=== PATIENT | male | born 1960 | race Caucasian/White ===

== ENCOUNTER 2019-06-05 11:14 | Inpatient (IN) | payer OTHER ==
[2019-06-05 11:43] LABS: Basophils % 0.6 % (0-1.3); Hematocrit 38.9 % (39.6-49.0); Lymphocytes % 5.7 % (15.3-44.8); MPV 9.2 fL (7.6-11.3); RBC Red Blood Cell Count 4.68 M/uL (4.33-5.43)
[2019-06-05] MEDS ORDERED: NA CHLORIDE 0.9% 3,000 ML ONE (11:44)
[2019-06-05] MEDS ORDERED: PIPER/TAZO/NS 3.375gm 3.375 GM/100 ML BAG ONE (11:44)
[2019-06-05 11:49] LABS: Protime INR 3.23
--- NOTE | 2019-06-05 12:08 | EDPHYS ---
Physician Documentation [facility] Name: Reji Kelly Age: 59 yrs Sex: Male : 1960 Arrival Date: 06/05/2019 Time: 11:16 Bed 8 Private MD: ED Physician James Rome HPI: 06/04 11:35 This 59 yrs old Male presents to ER via EMS with complaints of Wound ma2 Infection. 11:35 This 59 yrs old Male presents to ER via EMS with complaints of Wound ma2 Infection. 11:35 Associated signs and symptoms: Pertinent negatives: apnea, auditory hallucinations, ma2 depression, diaphoresis, dizziness, incontinence, loss of consciousness, shortness of breath, tearfulness, visual hallucinations. Severity of symptoms: At their worst the symptoms were mild in the emergency department the symptoms are unchanged. The patient has not experienced similar symptoms in the past. right foot great toe gangrene . Historical: - Allergies: 11:30 No Known Allergies; hb - Immunization history:: Adult Immunizations up to date. - Social history:: Smoking status: Patient denies any tobacco usage or history of. Patient/guardian denies using alcohol, street drugs, The patient lives with family. - Family history:: not pertinent. ROS: 11:35 Constitutional: Negative for fever, chills, and weight loss. ma2 11:35 All other systems are negative. 11:35 All other systems are negative. 11:35 All other systems are negative. Exam: 11:35 Constitutional: This is a well developed, well nourished patient who is awake, alert, ma2 and in no acute distress. ENT: Nares patent. No nasal discharge, no septal abnormalities noted. Tympanic membranes are normal and external auditory canals are clear. Oropharynx with no redness, swelling, or masses, exudates, or evidence of obstruction, uvula midline. Mucous membranes moist. Neck: Trachea midline, no thyromegaly or masses palpated, and no cervical lymphadenopathy. Supple, full range of motion without nuchal rigidity, or vertebral point tenderness. No Meningismus. Chest/axilla: Normal chest wall appearance and motion. Nontender with no deformity. No lesions are appreciated. Cardiovascular: Regular rate and rhythm with a normal S1 and S2. No gallops, murmurs, or rubs. Normal PMI, no JVD. No pulse deficits. Respiratory: Lungs have equal breath sounds bilaterally, clear to auscultation and percussion. No rales, rhonchi or wheezes noted. No increased work of breathing, no retractions or nasal flaring. Abdomen/GI: Soft, non-tender, with normal bowel sounds. No distension or tympany. No guarding or rebound. No evidence of tenderness throughout. Skin: Warm, dry with normal turgor. Normal color with no rashes, no lesions, and no evidence of cellulitis. MS/ Extremity: right great toe is black and necrotic, with swollen midfoot and red erythemetus, no fluctuence, right foot has good 2+ Pulses at right dp and pt that is equal to left, no cyanosis. sensation is intact. Full, normal range of motion. Neuro: Awake and alert, GCS 15, oriented to person, place, time, and situation. Cranial nerves II-XII grossly intact. Motor strength 5/5 in all extremities. Sensory grossly intact. Cerebellar exam normal. Normal gait. Vital Signs: 11:12 BP 128 / 83; Pulse 159; Resp 25; Temp 97.8; Pulse Ox 98% on R/A; Weight 113.4 kg; hb Height 5 ft. 11 in. (180.34 cm); Pain 0/10; 12:51 BP 118 / 41; Pulse 123; Resp 18; Pulse Ox 99% on R/A; hb 13:32 BP 123 / 87; Pulse 112; Resp 17; Temp 97.8; Pulse Ox 99% ; Pain 0/10; hb 11:12 Body Mass Index 34.87 (113.40 kg, 180.34 cm) hb MDM: 11:19 Patient medically screened. ma2 11:35 Differential diagnosis: hypoglycemia, closed head injury, intracranial hemorrhage, ma2 right great foot gangeren likely d/t peripheral vascular disease. 12:05 Data reviewed: vital signs, nurses notes. Counseling: I had a detailed discussion with ma2 the patient and/or guardian regarding: the historical points, exam findings, and any diagnostic results supporting the discharge/admit diagnosis, the presence of at least one elevated blood pressure reading (>120/80) during this emergency department visit, radiology results, the need for further work-up and treatment in the hospital. Response to treatment: There is no appreciated change of the patient's symptoms at this time. ED course: discussed with dr. dias needs emergent amputation \E\. 06/04 11:18 Order name: C-Reactive Protein [facility] 06/04 11:18 Order name: Amylase, Serum [facility] 06/04 11:18 Order name: Basic Metabolic Panel [facility] 06/04 11:18 Order name: Blood Culture Adult (2) [facility] 06/04 11:18 Order name: CBC with Diff [facility] 06/04 11:18 Order name: Ckmb [facility] 06/04 11:18 Order name: CPK [facility] 06/04 11:18 Order name: Lactate; Complete Time: 12:17 [facility] 06/04 11:18 Order name: LFT's [facility] 06/04 11:18 Order name: Lipase [facility] 06/04 11:18 Order name: Procalcitonin [facility] 06/04 11:18 Order name: Protime (+inr); Complete Time: 12:08 [facility] 06/04 11:18 Order name: Ptt, Activated; Complete Time: 12:08 [facility] 06/04 11:18 Order name: Troponin (emerg Dept Use Only) [facility] 06/04 11:18 Order name: NPO; Complete Time: 12:21 [facility] 06/04 11:18 Order name: Urine Microscopic Only [facility] 06/04 11:18 Order name: Chest Single View XRAY [facility] 06/04 11:18 Order name: Accucheck; Complete Time: 11:35 [facility] 06/04 11:18 Order name: Cardiac monitoring; Complete Time: 11:35 [facility] 06/04 11:18 Order name: EKG - Nurse/Tech; Complete Time: 11:35 [facility] 06/04 11:18 Order name: IV Saline Lock - Large Bore; Complete Time: 11:35 [facility] 06/04 11:18 Order name: Labs collected and sent; Complete Time: 11:35 [facility] 06/04 11:18 Order name: O2 Per Protocol; Complete Time: 11:35 [facility] 06/04 11:18 Order name: O2 Sat Monitoring; Complete Time: 11:35 [facility] 06/04 11:18 Order name: Foot Right 3 View XRAY [facility] 06/04 11:23 Order name: Pth,Intact [facility] 06/04 11:35 Order name: Glucose, Ancillary Testing; Complete Time: 11:57 EDMS 06/04 12:46 Order name: CBC Smear Scan EDMS Administered Medications: 11:52 Drug: NS 0.9% (30 ml/kg) 30 ml/kg Route: IV; Rate: bolus; Site: left antecubital; hb 13:00 Follow up: Response: No adverse reaction; IV Status: Completed infusion; IV Intake: hb 3500ml 11:52 Drug: Zosyn 3.375 grams Route: IVPB; Infused Over: 60 mins; Site: left antecubital; hb 13:00 Follow up: Response: No adverse reaction; IV Status: Completed infusion; IV Intake: hb 100ml Point of Care Testing: Blood Glucose: 11:32 Blood Glucose: 295 mg/dL; hb Ranges: Critical Glucose Levels:Adult <50 mg/dl or >400 mg/dl <40 mg/dl or >180 mg/dl Disposition: 06/05/19 12:07 Hospitalization ordered by Robert Potter for Inpatient Admission. Preliminary diagnosis are Severe sepsis without septic shock, Gangrene, not elsewhere classified. - Bed requested for Telemetry/MedSurg (Inpatient). - Status is Inpatient Admission. hb - Condition is Guarded. - Problem is new. - Symptoms are unchanged. Signatures: Dispatcher [employer] EDLA Corina Raymond RN RN hb Thompson, Moriah mt Alzahri, Mohammad, MD MD ma2 Corrections: (The following items were deleted from the chart) 13:29 12:07 Hospitalization Ordered by Robert Potter MD for Inpatient Admission. Preliminary mt diagnosis is Severe sepsis without septic shock; Gangrene, not elsewhere classified. Bed requested for Telemetry/MedSurg (Inpatient). Status is Inpatient Admission. Condition is Guarded. Problem is new. Symptoms are unchanged. ma2 14:09 13:29 06/05/2019 12:07 Hospitalization Ordered by Robert Potter MD for Inpatient hb Admission. Preliminary diagnosis is Severe sepsis without septic shock; Gangrene, not elsewhere classified. Bed requested for Telemetry/MedSurg (Inpatient). Status is Inpatient Admission. Condition is Guarded. Problem is new. Symptoms are unchanged. mt
--- NOTE | 2019-06-05 12:08 | ER ---
Nurse's Notes [facility] Name: Reji Kelly Age: 59 yrs Sex: Male : 1960 Arrival Date: 06/05/2019 Time: 11:16 Bed 8 Private MD: Diagnosis: Severe sepsis without septic shock;Gangrene, not elsewhere classified Presentation: 06/04 11:12 Chief complaint: EMS states: Sent from Dr. Schwarz's office for gangrene of right foot. hb Pt reports discoloration of right foot x 1 month, right 5th toe fell off during bath this morning. 11:12 Coronavirus screen: Patient denies fever greater than 100.4F, cough, shortness of hb breath, or difficulty breathing. Proceed with normal triage process. Ebola Screen: No symptoms or risks identified at this time. Initial Sepsis Screen: Does the patient meet any 2 criteria? RR > 20 per min. HR > 90 bpm. Yes Does the patient have a suspected source of infection? Yes: Skin breakdown/wound. Risk Assessment: Do you want to hurt yourself or someone else? Patient reports no desire to harm self or others. 11:12 Method Of Arrival: EMS: [facility] 11:12 Acuity: JOANA 2 hb Historical: - Allergies: 11:30 No Known Allergies; hb - Immunization history:: Adult Immunizations up to date. - Social history:: Smoking status: Patient denies any tobacco usage or history of. Patient/guardian denies using alcohol, street drugs, The patient lives with family. - Family history:: not pertinent. Screenin:26 Abuse screen: Denies threats or abuse. Denies injuries from another. Nutritional hb screening: No deficits noted. Tuberculosis screening: No symptoms or risk factors identified. Fall Risk Total [place] Fall Scale indicates No Risk (0-24 pts). Assessment: 11:15 General: Appears in no apparent distress. Behavior is calm, cooperative. Pain: Denies hb pain. Neuro: Level of Consciousness is awake, alert, obeys commands, Oriented to person, place, time, situation. Cardiovascular: Heart tones S1 S2 present Capillary refill < 3 seconds Patient's skin is warm and dry. Rhythm is atrial fibrillation with rapid ventricular response. Respiratory: Airway is patent Respiratory effort is even, unlabored, Respiratory pattern is regular, symmetrical, Breath sounds are clear bilaterally. GI: No signs and/or symptoms were reported involving the gastrointestinal system. : No signs and/or symptoms were reported regarding the genitourinary system. EENT: No signs and/or symptoms were reported regarding the EENT system. Derm: Right toes black and red with redness and swelling extending to mid foot, right 5th toe missing. Skin on toes and top of foot shiny and peeling, small amount of serosanguinous fluid draining from toes. 12:00 Reassessment: Patient appears in no apparent distress at this time. Patient and/or hb family updated on plan of care and expected duration. Pain level reassessed. Patient is alert, oriented x 3, equal unlabored respirations, skin warm/dry/pink. 13:00 Reassessment: Dr. Perez at bedside for consult. It is recommended that patient has a ss BKA, but patient refuses. 13:16 Reassessment: Awaiting for consultation from Dr. Vazquez with podiatry. Dr. Vazquez states ss he will evaluate patient at 1600. Vital Signs: 11:12 BP 128 / 83; Pulse 159; Resp 25; Temp 97.8; Pulse Ox 98% on R/A; Weight 113.4 kg; hb Height 5 ft. 11 in. (180.34 cm); Pain 0/10; 12:51 BP 118 / 41; Pulse 123; Resp 18; Pulse Ox 99% on R/A; hb 13:32 BP 123 / 87; Pulse 112; Resp 17; Temp 97.8; Pulse Ox 99% ; Pain 0/10; hb 11:12 Body Mass Index 34.87 (113.40 kg, 180.34 cm) hb ED Course: 11:16 Patient arrived in ED. ss 11:17 James Rome MD is Attending Physician. ma2 11:25 Inserted saline lock: 20 gauge in left antecubital area, using aseptic technique. Blood hb collected. 11:27 Arm band placed on. hb 11:30 Triage completed. hb 11:57 Chest Single View XRAY In Process Unspecified. EDMS 11:57 Foot Right 3 View XRAY In Process Unspecified. EDMS 12:07 Robert Potter MD is Hospitalizing Provider. ma2 12:20 Corina Raymond, MIREYA is Primary Nurse. hb Administered Medications: 11:52 Drug: NS 0.9% (30 ml/kg) 30 ml/kg Route: IV; Rate: bolus; Site: left antecubital; hb 13:00 Follow up: Response: No adverse reaction; IV Status: Completed infusion; IV Intake: hb 3500ml 11:52 Drug: Zosyn 3.375 grams Route: IVPB; Infused Over: 60 mins; Site: left antecubital; hb 13:00 Follow up: Response: No adverse reaction; IV Status: Completed infusion; IV Intake: hb 100ml Point of Care Testing: Blood Glucose: 11:32 Blood Glucose: 295 mg/dL; hb Ranges: Intake: 13:00 IV: 100ml; Total: 100ml. hb 13:00 IV: 3500ml; Total: 3600ml. hb Outcome: 12:07 Decision to Hospitalize by Provider. ma2 14:09 Patient left the ED. hb Signatures: Dispatcher [employer] EDJennifer Young RN RN Corina Raymond RN RN James Rome MD MD ms2
[2019-06-05 12:37] LABS: ALT/SGPT 20 U/L (12-78); AST/SGOT 27 U/L (15-37); Albumin 2.4 g/dL (3.4-5.0); Alkaline Phosphatase 92 U/L (45-117); Amylase Level 35 U/L (25-115); BUN Blood Urea Nitrogen 17 mg/dL (7-18); Bicarbonate 25 mmol/L (21-32); Bilirubin Total 1.8 mg/dL (0.2-1.0); CKMB Creatine Kinase MB < 1.0 ng/mL (0.3-3.6); Creatine Phosphokinase 27 U/L (39-308); Glucose Level 292 mg/dL (74-106); Lipase 92 U/L (73-393); Potassium 4.4 mmol/L (3.5-5.1); Protein, Total 8.3 g/dL (6.4-8.2); Sodium Level 128 mmol/L (136-145); Troponin (Emerg Dept Use Only) < 0.02 ng/mL (0.0-0.045)
[2019-06-05 12:45] LABS: Urine White Blood Cell Casts OK
[2019-06-05 12:46] LABS: Blood Morphology Comment NOT SEEN (NOT SEEN); Platelet Estimate ADEQ; Platelets, Giant FEW PRESENT
--- NOTE | 2019-06-05 13:02 | RAD REPORT ---
EXAM DESCRIPTION: RAD - Chest Single View - 06/05/2019 11:57 am CLINICAL HISTORY: CONGESTION COMPARISON: February 2009 TECHNIQUE: AP portable chest image was obtained 06/05/2019 11:57 am . FINDINGS: Right lung field is clear. Lung volumes are low. Left hemidiaphragm elevation is present n ew from the prior examination. No evidence for a left hilar mass on portable imaging. Low lung volume s on the left noted with no focal abnormality seen. No significant failure or volume overload. Heart and vasculature are normal. No measurable pleural effusion and no pneumothorax. No acute bony abnorma lity seen. No acute aortic findings suspected. IMPRESSION: Shallow inspiration portable chest shows no acute cardiopulmonary finding. Left hemidiaphragm elevation has developed since 2008. Etiology is not evident from this exam. Medias tinal or hilar mass is not evident on this study. Follow-up two view imaging could be performed for further assessment. Follow-up outpatient chest fluo roscopy could be performed to determine if there is normal movement of the left hemidiaphragm.
--- NOTE | 2019-06-05 13:07 | RAD REPORT ---
EXAM DESCRIPTION: RAD - Foot Right 3 View - 06/05/2019 11:57 am CLINICAL HISTORY: PAIN, gangrene of the right foot COMPARISON: No comparisonsNone. FINDINGS: Clinical history indicates black discoloration of the right first toe. Air is present in t he soft tissues extending to the proximal first metatarsal level. No foreign body in the soft tissues . First toe IP joint and first MTP joint degenerative changes are present relatively mild. There are no bone destructive changes of the first toe. Osteomyelitis can be present prior to radiographic bone destruction. The second- fourth phalanges and metatarsals show no acute findings. Bone destructive changes involve the fifth proximal phalanx. The head of the first proximal phalanx i s absent. The distal phalanges of the fifth toe are absent. Soft tissue wound is evident. The right f ifth metatarsal is intact. IMPRESSION: Soft tissue air densities are present in the first toe and extend proximally to the leve l of the first metatarsal base. Given the available history this is most likely gangrenous air. Osteomyelitis bone destruction involving the right fifth toe. The proximal phalanx shows bone destruc tion. The distal fifth toe phalanges are absent.
[2019-06-05] MEDS ORDERED: D50W 25 GM/50 ML SYRINGE/VIAL IV PRN (14:48)
[2019-06-05] MEDS ORDERED: GLUCAGON 1 MG/VIAL IM PRN (14:48)
[2019-06-05] MEDS ORDERED: ONDANSETRON 4 MG/2 ML VIAL IV PRN (15:05)
[2019-06-05] MEDS ORDERED: VANCOMYCIN/NS 1 gm 1 GM/250 ML BAG IVPB SCH (15:05)
[2019-06-05] MEDS ORDERED: MORPHINE 2 MG/ML SYR IV PRN (15:05)
[2019-06-05] MEDS ORDERED: HYDROCODONE/APAP 7.5/325 MG TAB PO PRN (15:05)
--- NOTE | 2019-06-05 15:17 | P.HP ---
Certification for Inpatient Patient admitted to: Inpatient With expected LOS: >2 Midnights Practitioner: I am a practitioner with admitting privileges, knowledge of patient current condition, hospital course, and medical plan of care. Services: Services provided to patient in accordance with Admission requirements found in Title 42 Section 412.3 of the Code of Federal Regulations Patient History Date of Service: 06/05/19 Reason for admission: Foot wound History of Present Illness: Patient is a 59-year-old male with past medical history of atrial fibrillation on Xarelto Pat[place] artery disease status post stent peripheral arterial disease who was in his usual state of health until approximately 1 month prior to admission. Patient has been having worsening ulceration of his right 1st and 5th toe. His 1st toe became gangrenous and patient presented to his deputy chief sheriff this morning. His 5th toe has fallen off. He was then sent to the ER for further evaluation. His symptoms are constant moderate progressively worsening. Denies any alleviating factors. does report pain however has peripheral neuropathy. In the ER he was found to be septic at a lactate of 5 WBC count 17,000 afebrile. His INR is 3.2. Patient was started on sepsis bundle with 3.5 L of IV fluids IV antibiotics and referred for admission. Patient was initially seen by surgeon on-call Dr. Perez however as he refused a BKA patient was then referred to deputy chief sheriff Dr. Vazquez. His foot x-ray showed gangrenous air on the 1st toe and osteomyelitis of the 5th When seen in the ER he was awake alert oriented x3 in some mild distress. Allergies No Known Allergies Allergy (Unverified 06/05/19 15:00) Home Medications: HYDROcodone bitartrate [Hydrocodone Bitartrate ER] 30 mg PO BID PRN 06/05/19 Metoprolol Tartrate 150 mg PO BID 06/05/19 Rivaroxaban [Xarelto] 20 mg PO DAILY 06/05/19 - Past Medical/Surgical History Has patient received pneumonia vaccine in the past: No Diabetic: No -: afib -: coronary artery disease -: Peripheral arterial disease -: Cardiac Stent X1 -: L knee surgery - Social History Smoking Status: Former smoker Alcohol use: No CD- Drugs: No Caffeine use: Yes Place of Residence: Home Review of Systems 10-point ROS is otherwise unremarkable Integumentary: As per HPI Physical Examination - Vital Signs Temperature: 97.8 F Blood Pressure: 123/87 Pulse: 112 Respirations: 17 - Physical Exam General: Alert, Oriented x3, Mild distress, Obese, Other (Ill-appearing male) HEENT: Atraumatic, PERRLA, Mucous membr. moist/pink, EOMI, Sclerae nonicteric Neck: Supple, JVD not distended Respiratory: Clear to auscultation bilaterally, Normal air movement, Other (No wheezing or stridor) Cardiovascular: No edema, Normal pulses, Normal S1 S2, Irregular heart rate/ rhythm Gastrointestinal: Normal bowel sounds, Soft and benign, Non-distended, No tenderness Musculoskeletal: No tenderness Integumentary: Erythema (Right foot 5th toe wound with ulceration. 1st toe gangrene with tendons exposed), Arterial ulcer Neurological: Normal speech, Normal strength at 5/5 x4 extr, Normal tone, Cranial nerves 3-12 intact, Normal affect, Abnormal sensation - Studies Laboratory Data (last 24 hrs) 06/05/19 11:20: PT 37.2 H, INR 3.23, APTT 49.3 H 06/05/19 11:20: WBC 17.1 H, Hgb 12.6 L, Hct 38.9 L, Plt Count 389 06/05/19 11:20: Sodium 128 L, Potassium 4.4, BUN 17, Creatinine 1.23, Glucose 292 H, Total Bilirubin 1.8 H, AST 27, ALT 20, Alkaline Phosphatase 92, Amylase 35, Lipase 92 Imagings Data: EXAM DESCRIPTION: RAD - Foot Right 3 View - 06/05/2019 11:57 am CLINICAL HISTORY: PAIN, gangrene of the right foot COMPARISON: No comparisonsNone. FINDINGS: Clinical history indicates black discoloration of the right first toe. Air is present in the soft tissues extending to the proximal first metatarsal level. No foreign body in the soft tissues. First toe IP joint and first MTP joint degenerative changes are present relatively mild. There are no bone destructive changes of the first toe. Osteomyelitis can be present prior to radiographic bone destruction. The second- fourth phalanges and metatarsals show no acute findings. Bone destructive changes involve the fifth proximal phalanx. The head of the first proximal phalanx is absent. The distal phalanges of the fifth toe are absent. Soft tissue wound is evident. The right fifth metatarsal is intact. IMPRESSION: Soft tissue air densities are present in the first toe and extend proximally to the level of the first metatarsal base. Given the available history this is most likely gangrenous air. Osteomyelitis bone destruction involving the right fifth toe. The proximal phalanx shows bone destruction. The distal fifth toe phalanges are absent. Dictated By: Yovani Ruano MD 06/05/19 1307 Signed By: Yovani Ruano MD 06/05/19 1307 EXAM DESCRIPTION: RAD - Chest Single View - 06/05/2019 11:57 am CLINICAL HISTORY: CONGESTION COMPARISON: February 2009 TECHNIQUE: AP portable chest image was obtained 06/05/2019 11:57 am . FINDINGS: Right lung field is clear. Lung volumes are low. Left hemidiaphragm elevation is present new from the prior examination. No evidence for a left hilar mass on portable imaging. Low lung volumes on the left noted with no focal abnormality seen. No significant failure or volume overload. Heart and vasculature are normal. No measurable pleural effusion and no pneumothorax. No acute bony abnormality seen. No acute aortic findings suspected. IMPRESSION: Shallow inspiration portable chest shows no acute cardiopulmonary finding. Left hemidiaphragm elevation has developed since 2008. Etiology is not evident from this exam. Mediastinal or hilar mass is not evident on this study. Follow-up two view imaging could be performed for further assessment. Follow-up outpatient chest fluoroscopy could be performed to determine if there is normal movement of the left hemidiaphragm. Assessment and Plan - Plan Sepsis. patient has been started on sepsis bundle has received 3.5 L of IV fluids lactate is still elevated will continue with normal saline bolus. Repeat lactate level blood cultures have been obtained. Will obtain wound cultures. Start on broad-spectrum IV antibiotics. WBC count is 17,000 lactate is 5 source of infection is osteomyelitis 5th toe and gangrene of the right 1st toe. Gangrenous 1st right toe continue IV antibiotics. Patient will need midfoot amputation. Dr. Vazquez has been consulted. Patient is on Xarelto and INR is elevated at 3.2 will need to wait until INR is below 2. Osteomyelitis 5th right toe. continue with IV antibiotics patient will need surgery and long-term IV antibiotics will consult infectious disease. Obtain PICC line. Atrial fibrillation with controlled ventricular rate permanent. will hold Xarelto. continue rate control Coronary artery disease status post stent. will obtain EKG. Cardiology is being consulted for cardiac clearance. Resume home medications Peripheral arterial disease. now with gangrene of the 1st toe Essential Hypertension. resume home medications Obesity. BMI 34.9 counseled Hyperglycemia without diagnosis of diabetes. Will start on sliding scale insulin. Check hemoglobin A1c patient states he is been checked multiple times but has not been labeled diabetic DVT prophylaxis with SCDs. No chemical anticoagulation due to impending surgery. - Advance Directives Does patient have a Living Will: Yes Does patient have a Durable POA for Healthcare: Yes
[2019-06-05] MEDS ORDERED: NA CHLORIDE 0.9% 1,000 ML IV ONE (15:30)
[2019-06-05] MEDS: CEFEPIME/SWI 2gm 2 GM/20 ML SYR IVP SCH ×2 (16:07→20:17)
--- NOTE | 2019-06-05 16:34 | P.CNS ---
Date of Consult: 06/05/19 Reason for Consult: gangrene right foot Requesting Physician: Robert Potter Chief Complaint: Foot wound History of Present Illness: Patient states that he noticed his right great toe and fifth digit turning colors a couple of weeks ago but thought that he could wait until after the COVID-19 pandemic resolved to have it treated. Stated that his right fifth digit was amputated by Dr. Schwarz this morning then was referred to the ER Allergies No Known Allergies Allergy (Unverified 06/05/19 15:00) Home Medications: HYDROcodone bitartrate [Hydrocodone Bitartrate ER] 30 mg PO BID PRN 06/05/19 Metoprolol Tartrate 150 mg PO BID 06/05/19 Rivaroxaban [Xarelto] 20 mg PO DAILY 06/05/19 - Past Medical/Surgical History Diabetic: No -: afib -: coronary artery disease -: Peripheral arterial disease -: Cardiac Stent X1 -: L knee surgery - Social History Alcohol use: No CD- Drugs: No Caffeine use: Yes Place of Residence: Home Review of Systems 10-point ROS is otherwise unremarkable Physical Examination Temp Pulse Resp BP Pulse Ox 97.8 F 112 H 17 123/87 06/05/19 15:34 06/05/19 15:34 06/05/19 15:34 06/05/19 15:34 General: Alert, In no apparent distress, Oriented x3 Cardiovascular: Edema, Abnormal pulses (0/4 dp/pt pulses right foot) Capillary refill: <2 Seconds Musculoskeletal: No clubbing, No swelling, No contractures, No erythema, No tenderness Integumentary: Other (gangrene of the right hallux extending to the mpj with previously amputated right fifth digit noted. Erythema and edema noted right forefoot, foul odor noted) Neurological: Abnormal sensation Laboratory Data (last 24 hrs) 06/05/19 11:20: PT 37.2 H, INR 3.23, APTT 49.3 H 06/05/19 11:20: WBC 17.1 H, Hgb 12.6 L, Hct 38.9 L, Plt Count 389 06/05/19 11:20: Sodium 128 L, Potassium 4.4, BUN 17, Creatinine 1.23, Glucose 292 H, Total Bilirubin 1.8 H, AST 27, ALT 20, Alkaline Phosphatase 92, Amylase 35, Lipase 92 - Problems (1) Type 2 diabetes mellitus with diabetic peripheral angiopathy with gangrene Current Visit: Yes Status: Acute (2) Abscess of right foot Current Visit: Yes Status: Acute Conclusions/Impression: Patient's gangrene is an emergent surgical need. Patient is at risk for loss of limb/life due to infection. Patient to be scheduled for right foot transmetatarsal/LisFranc's amputation. Patient unable to go to surgery tonight as his coagulation studies are too high. Physician Review: Patient Assessed, Agree with Above Assessment and Plan Critical Care: Yes Time Spent Managing Pts care (In Minutes): 20
--- NOTE | 2019-06-05 16:53 | EKG ---
Test Date: 2019-06-05 Test Time: 11:21:11 Assistant Teacher Primary: CRICKET MEASUREMENT RESULTS: Intervals: Rate: 135 RI: QRSD: 72 QT: 298 QTc: 447 [place]: P: RI: QRS: -25 T: 51 INTERPRETIVE STATEMENTS: Atrial fibrillation with rapid ventricular response Abnormal ECG Compared to ECG 02/22/2009 09:51:19 T-wave abnormality no longer present Electronically Signed On 06-05-19 16:52:58 CDT by Alvarado Leslie
[2019-06-05] MEDS ORDERED: INFLUENZA VACCINE (for 3y+) 0.5 ML DOSE IMVAC ONE (17:00)
[2019-06-05] MEDS ORDERED: VANCOMYCIN 3 GM in NA CHLORIDE 0.9% 500 ML IVPB ONE (17:00)
[2019-06-05] MEDS: NA CHLORIDE 0.9% 1,000 ML IV SCH ×2 (17:17→23:38)
[2019-06-05] MEDS: INSULIN -REGULAR HUMAN 50 UNIT/0.5 ML ML SQ SCH ×2 (17:26→20:28)
[2019-06-05] MEDS: HYDROCODONE BITARTRATE 30 MG PO PRN (17:55)
[2019-06-05] MEDS: METOPROLOL TAR 50 MG TAB PO SCH (20:17)
[2019-06-05] MEDS ORDERED: CEFEPIME 2 GM VIAL IV SCH (21:00)
[2019-06-05] MEDS ORDERED: METOPROLOL TARTRATE 150 MG PO SCH (21:00)
--- NOTE | 2019-06-05 21:31 | CON ---
Date of Consultation: 06/05/[address] Potter's service on 06/05/2019. I saw the patient on 06/05/2019. Reason For Consultation: Coronary artery disease and cardiac clearance for a right foot metatarsal a mputation. History Of Present Illness: Mr. Kelly is a 59-year-old white male. He is a patient of our clinic . Has seen me and Dr. Montano in the past. He had a stent approximately 20 years ago in 1 of his cor onaries and has really done very well from a coronary standpoint. He has had a history of hypertensi on, atrial fibrillation for many years. He takes metoprolol 150 mg b.i.d. and Xarelto. He has not h ad any cardiac symptoms recently. He denied chest pain, shortness of breath, nausea, vomiting, diaph oresis, PND, orthopnea, pedal edema, palpitations, or syncope. His EKG showed chronic atrial fibrill ation. His chest x-ray is negative. Foot x-ray showed gangrenous right foot. His sodium was 128, h is glucose was 242. His white count was 17,000. His INR was 3.23. He was seen by Dr. Vazquez who izaiah ns to do a surgical intervention on his right foot tomorrow. His INR is 3.23 on Xarelto, but that wright s been held. Past Medical History: As stated above. Allergies: NONE. Review of Systems: Negative. Social History: Negative. Family History: Noncontributory. Physical Examination: Vital Signs: Stable. He was in atrial fibrillation when I saw him with a rate of 110. HEENT: Nega tive. Neck: Supple with no bruit. Chest: Clear. Cardiac: Revealed atrial fibrillation. No murmurs, gallops, or rubs. Abdomen: Benign Extremities: Revealed a gangrenous right foot. On the left side, he had no clubbin g, cyanosis, or edema. Impression And Plan: 1.Coronary artery disease status post stent 20 years ago, asymptomatic. 2.Atrial fibrillation, chronic; on Xarelto and metoprolol. Xarelto is being held because of elevate d INR and need for surgery. 3.Hypertension, well controlled. 4.Elevated white count secondary to gangrenous right foot. 5.Possible diabetes. 6.Hyponatremia. 7.Elevated C-reactive protein secondary to present gangrene. I think Mr. Kelly is at low risk fo r perioperative mortality. I will continue to follow him postoperatively. After he is discharged, I will see him in the office and I will plan a cardiac workup on him including stress test and arteria l Doppler. JESU/TUTU Voice ID: [id number] Report ID: [id number]
[2019-06-06 06:17] LABS: Protime INR 2.24
[2019-06-06 06:35] LABS: Absolute Lymphocytes (CBC) 1.2 K/uL (0.7-4.9); Basophils % 0.8 % (0-1.3); Hematocrit 29.7 % (39.6-49.0); Lymphocytes % 9.7 % (15.3-44.8); MPV 9.2 fL (7.6-11.3)
[2019-06-06] MEDS: INSULIN -REGULAR HUMAN 50 UNIT/0.5 ML ML SQ SCH ×4 (07:30→21:00)
[2019-06-06] MEDS: METOPROLOL TAR 50 MG TAB PO SCH ×2 (08:42→21:12)
[2019-06-06] MEDS: CEFEPIME/SWI 2gm 2 GM/20 ML SYR IVP SCH ×2 (08:42→21:13)
[2019-06-06] MEDS: NA CHLORIDE 0.9% 1,000 ML IV SCH ×3 (08:43→17:16)
[2019-06-06] MEDS ORDERED: DILTIAZEM HCL 125 MG/25 ML VIAL IVP ONE (09:22)
--- NOTE | 2019-06-06 09:25 | RAD REPORT ---
EXAM DESCRIPTION: RAD - Chest Pa And Lat (2 Views) - 06/06/2019 5:03 am CLINICAL HISTORY: Elevated left-hemidiaphragm COMPARISON: None. TECHNIQUE: PA and lateral Chest. FINDINGS: Cardiac size is borderline enlarged. There is bilateral bronchial thickening. There is mil d left lower lobe atelectasis. No consolidation, pleural fluid or pneumothorax. Minimal aortic athero sclerosis. Elevated left hemidiaphragm may be secondary to eventration. Right subclavian PICC line is in the inferior aspect of the superior vena cava. Unremarkable soft tissues and bones. IMPRESSION: 1. Right subclavian PICC line placed without complication. 2. Bronchitis with mild left lower lobe atelectasis. Electronically signed by: Alina Jones DO 06/06/2019 4:54 AM CDT Due to temporary technical issues with the PACS/Fluency reporting system, reports are being signed by the in house radiologist as a courtesy to ensure prompt reporting. The interpreting radiologist is f ully responsible for the content of the report.
[2019-06-06] MEDS ORDERED: dilTIAZem HCL 25 MG/5 ML VIAL IV ONE (09:30)
[2019-06-06] MEDS ORDERED: BUPIVACAINE 0.5% PF 10 ML VIAL ONE (10:31)
[2019-06-06] MEDS ORDERED: LIDOCAINE 1% 20 ML MDV ONE (10:32)
[2019-06-06] MEDS ORDERED: propofoL 200 MG/20 ML VIAL IV ONE (10:41)
[2019-06-06] MEDS ORDERED: FENTANYL CITR 100 MCG/2 ML ONE (10:41)
[2019-06-06] MEDS ORDERED: LIDOCAINE 2% MPF 5 ML VIAL ONE ×2 (10:42)
[2019-06-06] MEDS ORDERED: ESMOLOL HCL 10 ML IV ONE (10:43)
[2019-06-06] MEDS: VANCOMYCIN 2 GM in NA CHLORIDE 0.9% 500 ML IVPB SCH (12:00)
[2019-06-06] MEDS ORDERED: Phenylephrine HCl 10 MG/ML 1 ML VIAL ONE (12:05)
[2019-06-06] MEDS ORDERED: NS 0.9% VIAL 20 ML ONE (12:05)
--- NOTE | 2019-06-06 12:15 | RAD REPORT ---
EXAM DESCRIPTION: RAD - Foot Right 2 View - 06/06/2019 12:08 pm CLINICAL HISTORY: Right great toe amputation FINDINGS: Two fluoroscopic spot image is submitted. Fluoroscopy time 0.1 minute. Metatarsal amputation Surgery performed by Dr. Vazquez
--- NOTE | 2019-06-06 12:25 | P.OP ---
Preoperative diagnosis: right foot abscess with gangrene Postoperative diagnosis: same Primary procedure: right transmetatarsal/Lisfranc's amputation Secondary procedure: right achilles tendon lenthening Other procedure(s): none Anesthesia: TIVA Estimated blood loss: 40cc Specimen: bone sent for gross Findings: as above Operative Technique: right foot transmetatarsal/LisFranc's amputation with achilles tendon lengthening Complications: None Transferred to: Recovery Room Condition: Good
[2019-06-06] MEDS: HYDROMORPHONE HCL 1 MG/ML INJ ONE ×4 (12:37→12:56)
--- NOTE | 2019-06-06 13:28 | P.PN ---
Subjective Date of Service: 06/06/19 Chief Complaint: Foot wound Subjective: Improving Patient seen and examined. Chart reviewed and case discussed w RN and Dr. Vazquez. Patient had amputation today. Did well postoperatively. Had to receive Cardizem in recovery due to Afib RVR Review of Systems 10-point ROS is otherwise unremarkable Cardiovascular: As per HPI Integumentary: As per HPI Physical Examination - Vital Signs Temperature: 97.3 F Blood Pressure: 103/64 Pulse: 105 Respirations: 20 Pulse Ox (%): 98 - Physical Exam General: Alert, Oriented x3, Mild distress, Obese, Other (ill appearing male) HEENT: Atraumatic, PERRLA, EOMI Neck: Supple, JVD not distended Respiratory: Clear to auscultation bilaterally, Normal air movement Cardiovascular: Normal pulses, Normal S1 S2, Edema, Irregular heart rate/rhythm Gastrointestinal: Normal bowel sounds, Soft and benign, Non-distended, No tenderness Integumentary: Other (right foot trans met amputation, bandaged, c/d/i) Neurological: Normal speech, Normal strength at 5/5 x4 extr, Normal tone, Normal affect - Studies Laboratory Tests 06/05/19 06/05/19 06/05/19 11:18 11:20 11:20 WBC 17.1 H RBC 4.68 Hgb 12.6 L Hct 38.9 L MCV 83.2 MCH 27.0 MCHC 32.5 RDW 13.9 Plt Count 389 MPV 9.2 Neutrophils % 87.1 H Lymphocytes % 5.7 L Monocytes % 6.5 Eosinophils % 0.1 Basophils % 0.6 Absolute Neutrophils 14.9 H Absolute Lymphocytes 1.0 Absolute Monocytes 1.1 Absolute Eosinophils 0.0 Absolute Basophils 0.1 Giant Platelets Few present Morphology Comment Not seen PT INR APTT Sodium 128 L Potassium 4.4 Chloride 91 L Carbon Dioxide 25 BUN 17 Creatinine 1.23 Estimated GFR 60 L Glucose 292 H POC Glucose Lactic Acid Calcium 8.7 Total Bilirubin 1.8 H Direct Bilirubin 1.0 H AST 27 ALT 20 Alkaline Phosphatase 92 Creatine Kinase 27 L CK-MB (CK-2) < 1.0 Rapid Troponin I < 0.02 C-Reactive Protein 313.00 H Serum Total Protein 8.3 H Albumin 2.4 L Globulin 5.9 H Albumin/Globulin Ratio 0.4 L Amylase 35 Lipase 92 Procalcitonin PTH Intact Urine RBC Cancelled Urine WBC Cancelled Ur Squamous Epith Cells Cancelled Ur Urothelial Cells Cancelled Calcium Oxalate Crystal Cancelled Uric Acid Crystals Cancelled Triple Phos Crystals Cancelled Other Crystals Cancelled Amorphous Sediment Cancelled Glitter Cells Cancelled Urine Bacteria Cancelled Hyaline Casts Cancelled Fine Granular Casts Cancelled Coarse Granular Casts Cancelled Waxy Casts Cancelled RBC Casts Cancelled WBC Casts Cancelled Urine Mucus Cancelled Urine Other Cancelled Urine Trichomonas Cancelled Urine Yeast Cancelled Ur Yeast w Hyphae Cancelled Urine Yeast (Budding) Cancelled Urine Sperm Cancelled Urine Culture Reflexed Cancelled Urine Total Volume Cancelled 06/05/19 06/05/19 06/05/19 11:20 11:20 11:20 WBC RBC Hgb Hct MCV MCH MCHC RDW Plt Count MPV Neutrophils % Lymphocytes % Monocytes % Eosinophils % Basophils % Absolute Neutrophils Absolute Lymphocytes Absolute Monocytes Absolute Eosinophils Absolute Basophils Giant Platelets Morphology Comment PT 37.2 H INR 3.23 APTT 49.3 H Sodium Potassium Chloride Carbon Dioxide BUN Creatinine Estimated GFR Glucose POC Glucose Lactic Acid 5.7 H* Calcium Total Bilirubin Direct Bilirubin AST ALT Alkaline Phosphatase Creatine Kinase CK-MB (CK-2) Rapid Troponin I C-Reactive Protein Serum Total Protein Albumin Globulin Albumin/Globulin Ratio Amylase Lipase Procalcitonin 0.30 PTH Intact Urine RBC Urine WBC Ur Squamous Epith Cells Ur Urothelial Cells Calcium Oxalate Crystal Uric Acid Crystals Triple Phos Crystals Other Crystals Amorphous Sediment Glitter Cells Urine Bacteria Hyaline Casts Fine Granular Casts Coarse Granular Casts Waxy Casts RBC Casts WBC Casts Urine Mucus Urine Other Urine Trichomonas Urine Yeast Ur Yeast w Hyphae Urine Yeast (Budding) Urine Sperm Urine Culture Reflexed Urine Total Volume 06/05/19 06/05/19 11:20 11:22 WBC RBC Hgb Hct MCV MCH MCHC RDW Plt Count MPV Neutrophils % Lymphocytes % Monocytes % Eosinophils % Basophils % Absolute Neutrophils Absolute Lymphocytes Absolute Monocytes Absolute Eosinophils Absolute Basophils Giant Platelets Morphology Comment PT INR APTT Sodium Potassium Chloride Carbon Dioxide BUN Creatinine Estimated GFR Glucose POC Glucose 295 H Lactic Acid Calcium Total Bilirubin Direct Bilirubin AST ALT Alkaline Phosphatase Creatine Kinase CK-MB (CK-2) Rapid Troponin I C-Reactive Protein Serum Total Protein Albumin Globulin Albumin/Globulin Ratio Amylase Lipase Procalcitonin PTH Intact 54.7 Urine RBC Urine WBC Ur Squamous Epith Cells Ur Urothelial Cells Calcium Oxalate Crystal Uric Acid Crystals Triple Phos Crystals Other Crystals Amorphous Sediment Glitter Cells Urine Bacteria Hyaline Casts Fine Granular Casts Coarse Granular Casts Waxy Casts RBC Casts WBC Casts Urine Mucus Urine Other Urine Trichomonas Urine Yeast Ur Yeast w Hyphae Urine Yeast (Budding) Urine Sperm Urine Culture Reflexed Urine Total Volume Medications List Reviewed: Yes Assessment And Plan - Plan Sepsis. Improving. WBC down to 12.9. Cont broad spectrum IV abx. F/up on cultures - currently pending. source of infection is osteomyelitis 5th toe and gangrene of the right 1st toe. Gangrenous 1st right toe continue IV antibiotics. Patient s/p trans met amputation by Dr. Vazquez. Osteomyelitis 5th right toe. continue with IV antibiotics patient will need surgery and long-term IV antibiotics will consult infectious disease. PICC line placed last night. Atrial fibrillation with controlled ventricular rate permanent. resume Xarelto 24 hrs post surgery. continue rate control w BB. Required Cardizem in PACU. Cardiology on board. Coronary artery disease status post stent. Resume home medications Peripheral arterial disease. now with gangrene of the 1st toe Essential Hypertension. resume home medications Obesity. BMI 34.9 counseled Hyperglycemia without diagnosis of diabetes. Will start on sliding scale insulin. hemoglobin A1c 7%. Counseled. DVT prophylaxis with SCDs. No chemical anticoagulation due recent surgery. Will need custodial IV abx for 6 weeks once cultures return. Physician Review: Patient Assessed, Agree with Above Assessment and Plan
[2019-06-06] MEDS: HYDROCODONE BITARTRATE 30 MG PO PRN (15:36)
--- NOTE | 2019-06-06 16:35 | PN ---
Mr. Kelly has a history of coronary artery disease, atrial fibrillation, was taking Xarelto prior to his admission. He was cleared for foot surgery by Dr. Vazquez. The patient is doing well. He brandi ined in atrial fibrillation with rate control. No fever. No cardiac complaints. I would recommend continuing the present medical regimen. I would resume his Xarelto whenever Dr. Vzaquez is comfortable with that. No change in his medical therapy otherwise. I will make sure he come see me in the offi ce in the near future. He has not had a cardiac workup since his angioplasty and stent approximately 20 years ago. I will do an ultrasound and a stress test and I will check his arterial circulation a s well. JESU/TUTU Voice ID: [id number] Report ID: [id number]
[2019-06-06] MEDS: MORPHINE 2 MG/ML SYR IV PRN ×2 (17:15→21:20)
--- NOTE | 2019-06-06 18:37 | OP ---
Surgeon: Kobi Vazquez Jr, DPM Preoperative Diagnosis: Right foot abscess with gangrene at the hallux and 5th toe. Postoperative Diagnosis: Right foot abscess with gangrene at the hallux and 5th toe. Procedure: Right Lisfranc/transmetatarsal amputation of the foot with incision and drainage and Achilles tendon lengthening. Pathology: Bone and tissues sent for gross and micro. Anesthesia: General. Hemostasis: None. Estimated Blood Loss: Approximately 40 mL. Materials: 3-0 Prolene. Injectables: None. Complications: None. Procedure In Detail: Patient was brought to the [facility] Operating Room and placed on the OR table in supine position. Patient was placed under general anesthesia by the anesthesiologist and patient was prepped and draped in usual aseptic manner. Attention was directed to the right foot, at which time, there was noted to be dark black dry mummified gangrenous tissue of the right hallux, extending proximal to the 1st metatarsal with necrotic tissue noted dorsal central midfoot. The right 5th toe was noted to have been previously autoamputated. At this time, there was noted to be erythema to the midfoot. At this time, the midshaft area of the metatarsals was identified under fluoroscopy and the skin was marked over the dorsum of the foot approximately midshaft of the metatarsals with a long plantar flap noted to extend to just proximal to the metatarsal heads. These incisions converged on the medial and lateral sides in a semi-elliptical format. The skin incision was carried straight to the bone utilizing a 10 blade. Utilizing a 15 blade, the dorsal and plantar flaps were reflected. There was noted to be black necrotic malodorous tissue noted over the dorsum of the 1st metatarsal extending all the way to the metatarsocuneiform joint. This was debrided. Following this, the 1st metatarsal was then disarticulated at the 1st metatarsocuneiform joint. Following this, utilizing the TPS saw, the bases of the 2nd, 3rd, 4th, and 5th metatarsals were transected. Next, utilizing sharp debridement, reflecting the transected portions of the bone distally, it was freed from the plantar flap. At this time, there was noted to be minimal bleeding. There was noted to be necrotic tissue dorsally at the incision site. This was debrided utilizing sharp dissection to a bleeding base. There was an area of necrotic nonviable tissue noted in the plantar flap medially this was debrided to bleeding base. Following this, the area was irrigated with copious amounts of normal sterile saline utilizing pulse lavage. At this time, the dorsum plantar flaps were remodeled and closure was obtained utilizing 3-0 Prolene. Following this, a tendo-Achilles lengthening was performed by performing a alexy-transection of the medial aspect of the medial half of the Achilles tendon, 2 cm proximal to its insertion. A 2 cm proximal to that, a lateral alexy-transection was performed. A 2 cm proximal to that, another medial alexy-transection was performed and foot dorsiflexed in the desired position. The wounds were then irrigated once again. Closure was obtained with 3-0 Prolene and a sterile dressing consisting of Xeroform, 4 x 4s, Kerlix, and a posterior splint was applied to the right lower extremity. The patient was noted to tolerate the procedure and anesthesia well and was transferred from OR to Recovery with vital signs stable. DAMARIS/TUTU Voice ID: [id number] Report ID: [id number] MAYO
[2019-06-07] MEDS: MORPHINE 2 MG/ML SYR IV PRN ×4 (01:06→17:06)
[2019-06-07] MEDS: NA CHLORIDE 0.9% 1,000 ML IV SCH ×5 (01:09→23:05)
[2019-06-07] MEDS: VANCOMYCIN 2 GM in NA CHLORIDE 0.9% 500 ML IVPB SCH ×2 (05:23→23:50)
[2019-06-07] MEDS: INSULIN -REGULAR HUMAN 50 UNIT/0.5 ML ML SQ SCH ×4 (07:30→20:55)
[2019-06-07] MEDS: CEFEPIME/SWI 2gm 2 GM/20 ML SYR IVP SCH ×2 (09:13→20:55)
[2019-06-07] MEDS: METOPROLOL TAR 50 MG TAB PO SCH ×2 (09:13→21:05)
--- NOTE | 2019-06-07 10:48 | P.PN ---
Subjective Date of Service: 06/07/19 Chief Complaint: Foot wound Subjective: Tolerating diet, Doing well Review of Systems 10-point ROS is otherwise unremarkable Physical Examination - Vital Signs Temperature: 97.2 F Blood Pressure: 111/53 Pulse: 90 Respirations: 21 Pulse Ox (%): 97 - Physical Exam General: Alert, In no apparent distress, Oriented x3 Cardiovascular: No edema, Abnormal pulses Capillary refill: >2 Seconds Musculoskeletal: No clubbing, No swelling, No contractures, No erythema, No tenderness, No warmth Integumentary: Other (forefoot amputation site well approximated, minimal breakthrough bleeding. No purulence, no necrosis noted. Small area of concern central aspect of incision dorsally that has a dusky appearance) Neurological: Abnormal sensation - Studies Medications List Reviewed: Yes Assessment And Plan - Current Problems (Diagnosis) (1) Type 2 diabetes mellitus with diabetic peripheral angiopathy with gangrene Current Visit: Yes Status: Acute (2) Abscess of right foot Current Visit: Yes Status: Acute - Plan Patient to be nonweightbearing right foot in posterior splint. Patient to keep dressing clean, dry and intact. Continue iv antibiotics Physician Review: Patient Assessed, Agree with Above Assessment and Plan
--- NOTE | 2019-06-07 12:35 | P.PN ---
Subjective Date of Service: 06/07/19 Chief Complaint: Foot wound Subjective: Doing well Patient seen and examined. Chart reviewed and case discussed w RN and Dr. Vazquez. Patient doing well postoperatively. Spoke with case management regarding setting up IV antibiotics. Explained to patient that he will need 4- 6 weeks of IV antibiotics at home due to his foot infection Review of Systems 10-point ROS is otherwise unremarkable Integumentary: As per HPI Physical Examination - Vital Signs Temperature: 97.0 F Blood Pressure: 76/53 Pulse: 93 Respirations: 20 Pulse Ox (%): 99 - Physical Exam General: Alert, In no apparent distress, Oriented x3, Obese HEENT: Atraumatic, PERRLA, EOMI Neck: Supple, JVD not distended Respiratory: Clear to auscultation bilaterally, Normal air movement Cardiovascular: Normal pulses, Regular rate/rhythm, Normal S1 S2, Edema Gastrointestinal: Normal bowel sounds, Soft and benign, Non-distended, No tenderness Musculoskeletal: No tenderness Integumentary: Arterial ulcer (Foot wound is bandaged clean dry intact) Neurological: Normal speech, Normal strength at 5/5 x4 extr, Normal tone, Normal affect - Studies Microbiology Data (last 24 hrs): No growth from wound or blood cultures to date Medications List Reviewed: Yes Assessment And Plan - Plan Sepsis. Improving. WBC down to 12.9. Cont broad spectrum IV abx. F/up on cultures - no growth to date. source of infection is osteomyelitis 5th toe and gangrene of the right 1st toe. Gangrenous 1st right toe continue IV antibiotics. Patient s/p trans met amputation by Dr. Vazquez. Wound healing well Osteomyelitis 5th right toe. continue with IV antibiotics patient will need long -term IV antibiotics. infectious disease consulted. PICC line in place Atrial fibrillation with rapid ventricular rate permanent. resume Xarelto continue rate control w BB. Required Cardizem in PACU. Cardiology on board. Coronary artery disease status post stent. Resume home medications. Outpatient stress test Peripheral arterial disease. now with gangrene of the 1st toe. Will need outpatient workup with cardiology Essential Hypertension. Continue home medications Obesity. BMI 34.9 counseled diabetes mellitus type 2 with hyperglycemia. Will start on sliding scale insulin. hemoglobin A1c 7%. Counseled. DVT prophylaxis continues Xarelto Will need [facility] IV abx for 4-6 weeks once cultures return. Per family service caseworker patient has a limited insurance type who were close in the week and. She will contact on Sunday to set up home IV antibiotics Discharge Plan: Home Plan to discharge in: 48 Hours - Code Status/Comfort Care Code Status Assessed: Yes Physician Review: Patient Assessed, Agree with Above Assessment and Plan
--- NOTE | 2019-06-07 13:00 | PN ---
Date of Progress Note: 06/07/2019 History Of Present Illness: Mr. Kelly was admitted approximately 48 hours ago with a right foot g angrene. He cleared him for surgery. He has had a history of CAD, status post stents 20 years ago, has chronic atrial fibrillation and hypertension. He normally takes metoprolol and Xarelto at home. His heart rate today is 103. He is status post 2nd, 3rd, 4th and 5th metatarsal transection yesterd ay by Dr. Vazquez. He did well postoperatively. His blood pressure is slightly low at 90 systolic, he art rate of 103, and may be slightly dehydrated. His last INR was 2.24. I would hydrate him and res tart his Xarelto today if it is okay with Dr. Vazquez. We will continue to follow him. JESU/TUTU Voice ID: [id number] Report ID: [id number]
[2019-06-07] MEDS: RIVAROXABAN 10 MG TABLET PO SCH (13:31)
[2019-06-07 14:55] LABS: Absolute Lymphocytes (CBC) 1.3 K/uL (0.7-4.9); BUN Blood Urea Nitrogen 10 mg/dL (7-18); Basophils % 0.9 % (0-1.3); Bicarbonate 26 mmol/L (21-32); Glucose Level 133 mg/dL (74-106); Lymphocytes % 13.2 % (15.3-44.8); MPV 9.4 fL (7.6-11.3); Potassium 3.7 mmol/L (3.5-5.1); RBC Red Blood Cell Count 3.39 M/uL (4.33-5.43); Sodium Level 134 mmol/L (136-145)
[2019-06-07] MEDS: HYDROCODONE BITARTRATE 30 MG PO PRN (21:04)
[2019-06-08 05:15] LABS: Absolute Lymphocytes (CBC) 1.4 K/uL (0.7-4.9); Hematocrit 28.3 % (39.6-49.0); Lymphocytes % 14.1 % (15.3-44.8); MPV 8.9 fL (7.6-11.3); RBC Red Blood Cell Count 3.42 M/uL (4.33-5.43)
[2019-06-08 05:28] LABS: BUN Blood Urea Nitrogen 8 mg/dL (7-18); Bicarbonate 25 mmol/L (21-32); Glucose Level 123 mg/dL (74-106); Potassium 3.4 mmol/L (3.5-5.1); Sodium Level 135 mmol/L (136-145)
[2019-06-08] MEDS: NA CHLORIDE 0.9% 1,000 ML IV SCH (07:05)
[2019-06-08] MEDS: INSULIN -REGULAR HUMAN 50 UNIT/0.5 ML ML SQ SCH ×4 (07:30→20:58)
--- NOTE | 2019-06-08 07:50 | P.PN ---
Subjective Date of Service: 06/08/19 Chief Complaint: Foot wound Subjective: Improving Patient seen and examined. Chart reviewed and case discussed w RN. Patient doing well no acute events overnight. Denies any pain Review of Systems 10-point ROS is otherwise unremarkable Integumentary: As per HPI Physical Examination - Vital Signs Temperature: 97.6 F Blood Pressure: 104/64 Pulse: 56 Respirations: 18 Pulse Ox (%): 98 - Physical Exam General: Alert, In no apparent distress, Oriented x3, Obese HEENT: Atraumatic, PERRLA, EOMI Neck: Supple, JVD not distended Respiratory: Clear to auscultation bilaterally, Normal air movement Cardiovascular: Regular rate/rhythm, Normal S1 S2, Edema Gastrointestinal: Normal bowel sounds, Soft and benign, Non-distended, No tenderness Musculoskeletal: No tenderness Integumentary: Arterial ulcer (Right foot bandaged clean dry intact) Neurological: Normal speech, Normal strength at 5/5 x4 extr, Normal tone, Normal affect - Studies Laboratory Tests 06/05/19 06/05/19 06/05/19 11:18 11:20 11:20 WBC 17.1 H RBC 4.68 Hgb 12.6 L Hct 38.9 L MCV 83.2 MCH 27.0 MCHC 32.5 RDW 13.9 Plt Count 389 MPV 9.2 Neutrophils % 87.1 H Lymphocytes % 5.7 L Monocytes % 6.5 Eosinophils % 0.1 Basophils % 0.6 Absolute Neutrophils 14.9 H Absolute Lymphocytes 1.0 Absolute Monocytes 1.1 Absolute Eosinophils 0.0 Absolute Basophils 0.1 Giant Platelets Few present Morphology Comment Not seen PT INR APTT Sodium 128 L Potassium 4.4 Chloride 91 L Carbon Dioxide 25 BUN 17 Creatinine 1.23 Estimated GFR 60 L Glucose 292 H POC Glucose Lactic Acid Calcium 8.7 Total Bilirubin 1.8 H Direct Bilirubin 1.0 H AST 27 ALT 20 Alkaline Phosphatase 92 Creatine Kinase 27 L CK-MB (CK-2) < 1.0 Rapid Troponin I < 0.02 C-Reactive Protein 313.00 H Serum Total Protein 8.3 H Albumin 2.4 L Globulin 5.9 H Albumin/Globulin Ratio 0.4 L Amylase 35 Lipase 92 Procalcitonin PTH Intact Urine RBC Cancelled Urine WBC Cancelled Ur Squamous Epith Cells Cancelled Ur Urothelial Cells Cancelled Calcium Oxalate Crystal Cancelled Uric Acid Crystals Cancelled Triple Phos Crystals Cancelled Other Crystals Cancelled Amorphous Sediment Cancelled Glitter Cells Cancelled Urine Bacteria Cancelled Hyaline Casts Cancelled Fine Granular Casts Cancelled Coarse Granular Casts Cancelled Waxy Casts Cancelled RBC Casts Cancelled WBC Casts Cancelled Urine Mucus Cancelled Urine Other Cancelled Urine Trichomonas Cancelled Urine Yeast Cancelled Ur Yeast w Hyphae Cancelled Urine Yeast (Budding) Cancelled Urine Sperm Cancelled Urine Culture Reflexed Cancelled Urine Total Volume Cancelled 06/05/19 06/05/19 06/05/19 11:20 11:20 11:20 WBC RBC Hgb Hct MCV MCH MCHC RDW Plt Count MPV Neutrophils % Lymphocytes % Monocytes % Eosinophils % Basophils % Absolute Neutrophils Absolute Lymphocytes Absolute Monocytes Absolute Eosinophils Absolute Basophils Giant Platelets Morphology Comment PT 37.2 H INR 3.23 APTT 49.3 H Sodium Potassium Chloride Carbon Dioxide BUN Creatinine Estimated GFR Glucose POC Glucose Lactic Acid 5.7 H* Calcium Total Bilirubin Direct Bilirubin AST ALT Alkaline Phosphatase Creatine Kinase CK-MB (CK-2) Rapid Troponin I C-Reactive Protein Serum Total Protein Albumin Globulin Albumin/Globulin Ratio Amylase Lipase Procalcitonin 0.30 PTH Intact Urine RBC Urine WBC Ur Squamous Epith Cells Ur Urothelial Cells Calcium Oxalate Crystal Uric Acid Crystals Triple Phos Crystals Other Crystals Amorphous Sediment Glitter Cells Urine Bacteria Hyaline Casts Fine Granular Casts Coarse Granular Casts Waxy Casts RBC Casts WBC Casts Urine Mucus Urine Other Urine Trichomonas Urine Yeast Ur Yeast w Hyphae Urine Yeast (Budding) Urine Sperm Urine Culture Reflexed Urine Total Volume 06/05/19 06/05/19 11:20 11:22 WBC RBC Hgb Hct MCV MCH MCHC RDW Plt Count MPV Neutrophils % Lymphocytes % Monocytes % Eosinophils % Basophils % Absolute Neutrophils Absolute Lymphocytes Absolute Monocytes Absolute Eosinophils Absolute Basophils Giant Platelets Morphology Comment PT INR APTT Sodium Potassium Chloride Carbon Dioxide BUN Creatinine Estimated GFR Glucose POC Glucose 295 H Lactic Acid Calcium Total Bilirubin Direct Bilirubin AST ALT Alkaline Phosphatase Creatine Kinase CK-MB (CK-2) Rapid Troponin I C-Reactive Protein Serum Total Protein Albumin Globulin Albumin/Globulin Ratio Amylase Lipase Procalcitonin PTH Intact 54.7 Urine RBC Urine WBC Ur Squamous Epith Cells Ur Urothelial Cells Calcium Oxalate Crystal Uric Acid Crystals Triple Phos Crystals Other Crystals Amorphous Sediment Glitter Cells Urine Bacteria Hyaline Casts Fine Granular Casts Coarse Granular Casts Waxy Casts RBC Casts WBC Casts Urine Mucus Urine Other Urine Trichomonas Urine Yeast Ur Yeast w Hyphae Urine Yeast (Budding) Urine Sperm Urine Culture Reflexed Urine Total Volume Microbiology Data (last 24 hrs): Blood culture and wound culture no growth to date Medications List Reviewed: Yes Assessment And Plan - Plan Sepsis. Improving. WBC normalized. Cont broad spectrum IV abx. F/up on cultures - no growth to date. source of infection is osteomyelitis 5th toe and gangrene of the right 1st toe. Gangrenous 1st right toe continue IV antibiotics. Patient s/p trans met amputation by Dr. Vazquez. Wound healing well Osteomyelitis 5th right toe. continue with IV antibiotics patient will need long -term IV antibiotics. infectious disease consulted. PICC line in place Atrial fibrillation with rapid ventricular rate permanent. Now with controlled rate. continue Xarelto continue rate control w BB. Cardiology on board. Coronary artery disease status post stent. Resume home medications. Outpatient stress test Peripheral arterial disease. now with gangrene of the 1st toe. Will need outpatient workup with cardiology Essential Hypertension. Continue home medications Obesity. BMI 34.9 counseled diabetes mellitus type 2 with hyperglycemia. Continue sliding scale insulin. hemoglobin A1c 7%. Counseled. DVT prophylaxis continues Xarelto Will need terminologist IV abx for 4-6 weeks pending cultures results Per test case developer patient has a limited insurance type who were close in the week and. She will contact on Sunday to set up home IV antibiotics Physician Review: Patient Assessed, Agree with Above Assessment and Plan
[2019-06-08] MEDS: HYDROCODONE BITARTRATE 30 MG PO PRN ×2 (09:04→20:59)
[2019-06-08] MEDS: METOPROLOL TAR 50 MG TAB PO SCH ×2 (09:05→20:57)
[2019-06-08] MEDS: CEFEPIME/SWI 2gm 2 GM/20 ML SYR IVP SCH ×2 (09:21→20:58)
--- NOTE | 2019-06-08 09:21 | PN ---
Date of Progress Note: 06/08/2019 Mr. Kelly had come in with right toe gangrene. He is status post metatarsal resection second, thi rd, fourth, and fifth. This was done by Dr. Vazquez. Postoperatively, he did very well, continues to be in atrial fibrillation. His rate is 56 now. He has history of CAD, status post stent about 20 ye ars ago. Has hypertension that is well controlled now. He is back on metoprolol 150 b.i.d., and he is back on his Xarelto. I will sign-off his case right now. If his bradycardia becomes an issue, we can certainly decrease the metoprolol to 100 b.i.d. For now, he is asymptomatic. Blood pressure is normal and then I would leave him on that dose. I will make arrangements for him to have outpatient office visits. He should have a repeat stress test, which he has not had since his stent and I will also check his arterial circulation in the legs and see if he has ever had a carotid Doppler. I keila l do that as an outpatient. JESU/TUTU Voice ID: [id number] Report ID: [id number]
[2019-06-08] MEDS: VANCOMYCIN 2 GM in NA CHLORIDE 0.9% 500 ML IVPB SCH (16:52)
[2019-06-08] MEDS: RIVAROXABAN 10 MG TABLET PO SCH (16:52)
[2019-06-08] MEDS ORDERED: VANCOMYCIN 2 GM in NA CHLORIDE 0.9% 500 ML IVPB SCH (18:00)
[2019-06-09] MEDS: VANCOMYCIN 2 GM in NA CHLORIDE 0.9% 500 ML IVPB SCH ×2 (04:29→17:09)
[2019-06-09] MEDS: MORPHINE 2 MG/ML SYR IV PRN ×3 (04:30→14:33)
[2019-06-09] MEDS ORDERED: VANCOMYCIN 2 GM in NA CHLORIDE 0.9% 500 ML IVPB SCH (05:00)
[2019-06-09] MEDS: INSULIN -REGULAR HUMAN 50 UNIT/0.5 ML ML SQ SCH ×4 (07:30→20:07)
--- NOTE | 2019-06-09 07:59 | P.DS ---
Admission Date: 06/05/19 Discharge Date: 06/09/19 Disposition: DC HOME/HOME HEALTH CARE Discharge Condition: FAIR Reason for Admission: Foot wound Consultations: Dr. Vazquez, podiatry Dr. Leslie cardiology Procedures: Right foot debridement Dr. Vazquez Brief History of Present Illness: Patient is a 59-year-old male with past medical history of atrial fibrillation on Xarelto Patito artery disease status post stent peripheral arterial disease who was in his usual state of health until approximately 1 month prior to admission. Patient has been having worsening ulceration of his right 1st and 5th toe. 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 His 5th toe has fallen off. He was then sent to the ER for further evaluation. His symptoms are constant moderate progressively worsening. Denies any alleviating factors. does report pain however has peripheral neuropathy. In the ER he was found to be septic at a lactate of 5 WBC count 17,000 afebrile. His INR is 3.2. Patient was started on sepsis bundle with 3.5 L of IV fluids IV antibiotics and referred for admission. Patient was initially seen by surgeon on-call Dr. Perez however as he refused a BKA patient was then referred to inspector [employer] Dr. Vazquez. His foot x-ray showed gangrenous air on the 1st toe and osteomyelitis of the 5th When seen in the ER he was awake alert oriented x3 in some mild distress. Hospital Course: Patient is a 59-year-old male with a past medical history of heart disease atrial fibrillation on anticoagulation peripheral vascular disease hypertension comes in with sepsis secondary to gangrene of his right foot 1st toe and osteomyelitis of the 5th toe. The patient was admitted to the hospital and started on IV antibiotics. Patient was seen by podiatry Dr. Vazquez performed debridement. Patient was also seen by Cardiology for management of his atrial fibrillation. The Xarelto had been held for surgery and then restart it later. Overall patient did well. His blood cultures and wound cultures are negative to date. PICC line was placed for long-term IV antibiotics. Patient is willing to pay out of pocket if his insurance does not cover it. He will need weekly CBC CMP ESR CRP and a half PICC line care and to have PICC line discontinued once IV antibiotics have been completed. Wound care instructions per Dr. Vazquez. Patient has crutches at bedside. No weight-bearing on the right foot. Patient to follow up with Dr. Vazquez for wound check. Sepsis. Resolved. WBC normalized. Cont broad spectrum IV abx. F/up on cultures - no growth to date. source of infection is osteomyelitis 5th toe and gangrene of the right 1st toe. Gangrenous 1st right toe continue IV antibiotics. Patient s/p trans met amputation by Dr. Vazquez. Wound healing well Osteomyelitis 5th right toe. continue with IV antibiotics patient will need long -term IV antibiotics. infectious disease consulted. PICC line in place Atrial fibrillation with rapid ventricular rate permanent. Now with controlled rate. continue Xarelto continue rate control w BB. Cardiology on board. Coronary artery disease status post stent. Resume home medications. Outpatient stress test Peripheral arterial disease. now with gangrene of the 1st toe. Will need outpatient workup with cardiology Essential Hypertension. Continue home medications Obesity. BMI 34.9 counseled New onset diabetes mellitus type 2 with hyperglycemia. Continue sliding scale insulin. hemoglobin A1c 7%. Counseled. Vital Signs/Physical Exam: Temp Pulse Resp BP Pulse Ox 96.8 F 108 H 16 107/56 L 96 06/09/19 04:00 06/09/19 04:00 06/09/19 05:00 06/09/19 04:00 06/09/19 05:00 General: Alert, In no apparent distress, Oriented x3, Obese HEENT: Atraumatic, PERRLA, EOMI Neck: Supple, JVD not distended Respiratory: Clear to auscultation bilaterally, Normal air movement Cardiovascular: Regular rate/rhythm, Normal S1 S2 Gastrointestinal: Normal bowel sounds, Soft and benign, Non-distended, No tenderness Musculoskeletal: No tenderness Integumentary: No rashes, Other (Right foot bandaged clean dry intact) Neurological: Normal speech, Normal strength at 5/5 x4 extr, Normal tone, Normal affect Laboratory Data at Discharge: WBC 9.8 K/uL (4.3-10.9) 06/08/19 05:10 Hgb 9.3 g/dL (13.6-17.9) L 06/08/19 05:10 Hct 28.3 % (39.6-49.0) L 06/08/19 05:10 Plt Count 297 K/uL (152-406) 06/08/19 05:10 PT 26.0 SECONDS (9.5-12.5) H 06/06/19 05:45 INR 2.24 06/06/19 05:45 APTT 49.3 SECONDS (24.3-36.9) H 06/05/19 11:20 Sodium 135 mmol/L (136-145) L 06/08/19 05:10 Potassium 3.4 mmol/L (3.5-5.1) L 06/08/19 05:10 BUN 8 mg/dL (7-18) 06/08/19 05:10 Creatinine 0.46 mg/dL (0.55-1.3) L 06/08/19 05:10 Glucose 123 mg/dL (74-106) H 06/08/19 05:10 Total Bilirubin 1.8 mg/dL (0.2-1.0) H 06/05/19 11:20 AST 27 U/L (15-37) 06/05/19 11:20 ALT 20 U/L (12-78) 06/05/19 11:20 Alkaline Phosphatase 92 U/L (45-117) 06/05/19 11:20 Amylase 35 U/L (25-115) 06/05/19 11:20 Lipase 92 U/L (73-393) 06/05/19 11:20 Home Medications: HYDROcodone bitartrate [Hydrocodone Bitartrate ER] 30 mg PO BID PRN 06/05/19 Metoprolol Tartrate 150 mg PO BID 06/05/19 Rivaroxaban [Xarelto] 20 mg PO DAILY 06/05/19 CEFEPIME/SWI 2gm [Maxipime 2 gm/20 ml Swi Ivp] 2 gm IV Q12HR #1 syr 06/09/19 Vancomycin/Water For Inj (Peg) [Vancomycin 2 Gram/400 ml Bag] 2 gm IV Q12HR #1 piggyback 06/09/19 New Medications: CEFEPIME/SWI 2gm [Maxipime 2 gm/20 ml Swi Ivp] 2 gm IV Q12HR #1 syr Vancomycin/Water For Inj (Peg) [Vancomycin 2 Gram/400 ml Bag] 2 gm IV Q12HR #1 piggyback Patient Discharge Instructions: Follow up with primary care physician in 1-2 weeks. Follow up with inspector [employer] Dr. Vazquez in 1 week for wound check. Return to ER for worsening condition. Wound care instructions per Dr. Vazquez. Patient to have IV antibiotics set up as patient. Will need complete CBC CMP ESR to CRP. PCP to follow up on test results Diet: ADA Activity: Non-weight bearing (Right foot) Time spent managing pt's care (in minutes): 39
[2019-06-09] MEDS: METOPROLOL TAR 50 MG TAB PO SCH ×2 (08:27→20:08)
[2019-06-09 08:28] LABS: BUN Blood Urea Nitrogen 6 mg/dL (7-18); Bicarbonate 28 mmol/L (21-32); Glucose Level 125 mg/dL (74-106); Potassium 3.3 mmol/L (3.5-5.1); Sodium Level 137 mmol/L (136-145)
[2019-06-09] MEDS: CEFEPIME/SWI 2gm 2 GM/20 ML SYR IVP SCH ×2 (09:21→20:09)
[2019-06-09] MEDS: RIVAROXABAN 20 MG TABLET PO SCH (17:08)
[2019-06-09] MEDS ORDERED: ALTEPLASE 2 MG/VIAL IV SCH (18:00)
[2019-06-09] MEDS ORDERED: WATER FOR INJ,STERILE 10 ML IV SCH (18:00)
[2019-06-10] MEDS: VANCOMYCIN 2 GM in NA CHLORIDE 0.9% 500 ML IVPB SCH ×2 (05:00→17:10)
[2019-06-10] MEDS: INSULIN -REGULAR HUMAN 50 UNIT/0.5 ML ML SQ SCH ×4 (07:30→20:59)
[2019-06-10 07:59] LABS: ALT/SGPT 26 U/L (12-78); AST/SGOT 36 U/L (15-37); Albumin 1.7 g/dL (3.4-5.0); Alkaline Phosphatase 77 U/L (45-117); BUN Blood Urea Nitrogen 6 mg/dL (7-18); Bicarbonate 29 mmol/L (21-32); Bilirubin Total 0.6 mg/dL (0.2-1.0); Glucose Level 132 mg/dL (74-106); Potassium 3.3 mmol/L (3.5-5.1); Protein, Total 6.6 g/dL (6.4-8.2); Sodium Level 136 mmol/L (136-145)
[2019-06-10 08:36] LABS: Absolute Lymphocytes (CBC) 1.7 K/uL (0.7-4.9); Basophils % 1.1 % (0-1.3); Hematocrit 30.9 % (39.6-49.0); Lymphocytes % 17.2 % (15.3-44.8); RBC Red Blood Cell Count 3.74 M/uL (4.33-5.43)
[2019-06-10] MEDS: METOPROLOL TAR 50 MG TAB PO SCH ×2 (08:52→20:15)
[2019-06-10] MEDS: CEFEPIME/SWI 2gm 2 GM/20 ML SYR IVP SCH ×2 (08:53→21:00)
--- NOTE | 2019-06-10 12:00 | P.DS ---
Admission Date: 06/05/19 Discharge Date: 06/10/19 Disposition: DC HOME/HOME HEALTH CARE Discharge Condition: FAIR Reason for Admission: Foot wound Brief History of Present Illness: Brief History of Present Illness: Patient is a 59-year-old male with past medical history of atrial fibrillation on Xarelto Patito artery disease status post stent peripheral arterial disease who was in his usual state of health until approximately 1 month prior to admission. Patient has been having worsening ulceration of his right 1st and 5th toe. 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 His 5th toe has fallen off. He was then sent to the ER for further evaluation. His symptoms are constant moderate progressively worsening. Denies any alleviating factors. does report pain however has peripheral neuropathy. In the ER he was found to be septic at a lactate of 5 WBC count 17,000 afebrile. His INR is 3.2. Patient was started on sepsis bundle with 3.5 L of IV fluids IV antibiotics and referred for admission. Patient was initially seen by surgeon on-call Dr. Perez however as he refused a BKA patient was then referred to [employer] [address] [employer] [address] Vazquez. His foot x-ray showed gangrenous air on the 1st toe and osteomyelitis of the 5th When seen in the ER he was awake alert oriented x3 in some mild distress. Hospital Course: Patient is a 59-year-old male with a past medical history of heart disease atrial fibrillation on anticoagulation peripheral vascular disease hypertension comes in with sepsis secondary to gangrene of his right foot 1st toe and osteomyelitis of the 5th toe. The patient was admitted to the hospital and started on IV antibiotics. Patient was seen by podiatry Dr. Vazquez performed debridement. Patient was also seen by Cardiology for management of his atrial fibrillation. The Xarelto had been held for surgery and then restart it later. Overall patient did well. His blood cultures and wound cultures are negative to date. PICC line was placed for long-term IV antibiotics. Patient is willing to pay out of pocket if his insurance does not cover it. He will need weekly CBC CMP ESR CRP and a half PICC line care and to have PICC line discontinued once IV antibiotics have been completed. Wound care instructions per Dr. Vazquez. Patient has crutches at bedside. No weight-bearing on the right foot. Patient to follow up with Dr. Vazquez for wound check. Sepsis. Resolved. WBC normalized. Cont broad spectrum IV abx. F/up on cultures - no growth to date. source of infection is osteomyelitis 5th toe and gangrene of the right 1st toe. Gangrenous 1st right toe continue IV antibiotics. Patient s/p trans met amputation by Dr. Vazquez. Wound healing well Osteomyelitis 5th right toe. continue with IV antibiotics patient will need long-term IV antibiotics. infectious disease consulted. PICC line in place Atrial fibrillation with rapid ventricular rate permanent. Now with controlled rate. continue Xarelto continue rate control w BB. Cardiology on board. Coronary artery disease status post stent. Resume home medications. Outpatient stress test Peripheral arterial disease. now with gangrene of the 1st toe. Will need ou tpatient workup with cardiology Essential Hypertension. Continue home medications Obesity. BMI 34.9 counseled New onset diabetes mellitus type 2 with hyperglycemia. Continue sliding scale insulin. hemoglobin A1c 7%. Counseled. Vital Signs/Physical Exam: Temp Pulse Resp BP Pulse Ox 97.2 F 114 H 20 141/71 H 97 06/10/19 08:00 06/10/19 08:52 06/10/19 08:00 06/10/19 08:52 06/10/19 08:00 General: Alert, In no apparent distress, Oriented x3 HEENT: Atraumatic, Normocephalic, PERRLA Neck: Supple, 2+ carotid pulse no bruit, JVD not distended Respiratory: Clear to auscultation bilaterally, Normal air movement Cardiovascular: Regular rate/rhythm, Normal S1 S2 Gastrointestinal: Normal bowel sounds, Soft and benign, Non-distended Integumentary: No rashes, No breakdown Neurological: Normal speech, Normal strength at 5/5 x4 extr, Normal tone Laboratory Data at Discharge: WBC 9.6 K/uL (4.3-10.9) 06/10/19 04:07 Hgb 10.3 g/dL (13.6-17.9) L 06/10/19 04:07 Hct 30.9 % (39.6-49.0) L 06/10/19 04:07 Plt Count 371 K/uL (152-406) D 06/10/19 04:07 PT 26.0 SECONDS (9.5-12.5) H 06/06/19 05:45 INR 2.24 06/06/19 05:45 APTT 49.3 SECONDS (24.3-36.9) H 06/05/19 11:20 Sodium 136 mmol/L (136-145) 06/10/19 04:07 Potassium 3.3 mmol/L (3.5-5.1) L 06/10/19 04:07 BUN 6 mg/dL (7-18) L 06/10/19 04:07 Creatinine 0.44 mg/dL (0.55-1.3) L 06/10/19 04:07 Glucose 132 mg/dL (74-106) H 06/10/19 04:07 Total Bilirubin 0.6 mg/dL (0.2-1.0) 06/10/19 04:07 AST 36 U/L (15-37) 06/10/19 04:07 ALT 26 U/L (12-78) 06/10/19 04:07 Alkaline Phosphatase 77 U/L (45-117) 06/10/19 04:07 Amylase 35 U/L (25-115) 06/05/19 11:20 Lipase 92 U/L (73-393) 06/05/19 11:20 Home Medications: HYDROcodone bitartrate [Hydrocodone Bitartrate ER] 30 mg PO BID PRN 06/05/19 Metoprolol Tartrate 150 mg PO BID 06/05/19 Rivaroxaban [Xarelto] 20 mg PO DAILY 06/05/19 CEFEPIME/SWI 2gm [Maxipime 2 gm/20 ml Swi Ivp] 2 gm IV Q12HR #1 syr 06/09/19 Vancomycin/Water For Inj (Peg) [Vancomycin 2 Gram/400 ml Bag] 2 gm IV Q12HR #1 piggyback 06/09/19 New Medications: CEFEPIME/SWI 2gm [Maxipime 2 gm/20 ml Swi Ivp] 2 gm IV Q12HR #1 syr Vancomycin/Water For Inj (Peg) [Vancomycin 2 Gram/400 ml Bag] 2 gm IV Q12HR #1 piggyback Patient Discharge Instructions: Follow up with primary care physician in 1-2 weeks. Follow up with [employer] [address] Vazquez in 1 week for wound check. Return to ER for worsening condition. Wound care instructions per Dr. Vazquez. Patient to have IV antibiotics set up as patient. Will need complete CBC CMP ESR to CRP weekly. PCP to follow up on test results. PICC line care. Dc PICC line once IV antibiotics completed Diet: ADA Activity: Non-weight bearing (Right foot) Physician Review: Patient Assessed, Agree with Above Assessment and Plan Time spent managing pt's care (in minutes): 35
--- NOTE | 2019-06-10 12:02 | P.PN ---
Subjective Date of Service: 06/10/19 Chief Complaint: Foot wound Subjective: No new changes, Tolerating diet Physical Examination - Vital Signs Temperature: 97.2 F Blood Pressure: 141/71 Pulse: 114 Respirations: 20 Pulse Ox (%): 97 - Physical Exam General: In no apparent distress, Oriented x3 HEENT: Atraumatic, Normocephalic, PERRLA Respiratory: Clear to auscultation bilaterally, Normal air movement Cardiovascular: Normal pulses, Regular rate/rhythm, Normal S1 S2 Gastrointestinal: Normal bowel sounds, Soft and benign, Non-distended Musculoskeletal: Other (dsg over right foot ) Neurological: Normal speech, Normal strength at 5/5 x4 extr, Normal tone - Studies Microbiology Data (last 24 hrs): 06/05/19 11:28 Blood - Blood Aerobic Blood Culture - Final No growth in 5 days. 06/05/19 11:28 Blood - Blood Anaerobic Blood Culture - Final No growth in 5 days. 06/05/19 11:20 Blood - Blood Aerobic Blood Culture - Final No growth in 5 days. 06/05/19 11:20 Blood - Blood Anaerobic Blood Culture - Final No growth in 5 days. Medications List Reviewed: Yes Assessment And Plan - Current Problems (Diagnosis) (1) Abscess of right foot Current Visit: Yes Status: Acute (2) Type 2 diabetes mellitus with diabetic peripheral angiopathy with gangrene Current Visit: Yes Status: Acute Physician Review: Patient Assessed, Agree with Above Assessment and Plan Physician Review Additional Text: A/P AWAITING HOME INFUSION SET UP Sepsis. Resolved. WBC normalized. Cont broad spectrum IV abx. F/up on cultures - no growth to date. source of infection is osteomyelitis 5th toe and gangrene of the right 1st toe. Gangrenous 1st right toe continue IV antibiotics. Patient s/p trans met amputation by Dr. Vazquez. Wound healing well Osteomyelitis 5th right toe. continue with IV antibiotics patient will need long-term IV antibiotics. infectious disease consulted. PICC line in place Atrial fibrillation with rapid ventricular rate permanent. Now with controlled rate. continue Xarelto continue rate control w BB. Cardiology on board. Coronary artery disease status post stent. Resume home medications. Outpatient stress test Peripheral arterial disease. now with gangrene of the 1st toe. Will need outpatient workup with cardiology Essential Hypertension. Continue home medications Obesity. BMI 34.9 counseled New onset diabetes mellitus type 2 with hyperglycemia. Continue sliding scale insulin. hemoglobin A1c 7%. Counseled.
--- NOTE | 2019-06-10 15:18 | CON ---
History Of Present Illness: This is a 59-year-old male I was consulted for evaluation of infected fo ot wound. Patient had surgical transmetatarsal amputation done by surgical team. Initially when he came in, his white blood cell count was 17,000, currently being treated with IV antibiotic. Patient denies any other problems at this time. No fever. No chest pain, abdominal pain, constipation, or d iarrhea. No headaches. No rashes. No allergies to antibiotic. Past medical history peripheral vas cular disease, gangrenous changes to the foot status post amputation, atrial fibrillation, coronary a rtery disease. Past Medical History: As per HPI. Social History: Ex-smoker, quit 4 years ago. No alcohol. Family History: Noncontributory. Medications: Cefepime, vancomycin. See MAR for other medication. Allergies: NO KNOWN DRUG ALLERGIES. Review of Systems: A 10-point review was performed. Physical Examination: General: This is a 59-year-old male, lying in bed, not in any acute cardiopulmonary distress. Vital Signs: Temperature 97, pulse rate 114, respirations 20, blood pressure 141/71. HEENT: Unremarkable. Neck: Supple. Lungs: Basal crackles. Heart: S1, S2. Regular. Abdomen: Soft, nontender. Bowel sounds present. Extremities: Right foot transmetatarsal amputation site shows gangrenous changes and purplish discol oration with sutures in place. No excessive discharge or bleeding noted at this time. Laboratory Data: Shows WBC 9.6, hemoglobin 10.3, platelets are 371. Chemistry shows sodium 136, pot assium 3.3, chloride 101, bicarb 29, BUN 6, creatinine 0.4, glucose 132. Micro data shows cultures n o growth. Assessment And Plan: Right foot status post transmetatarsal amputation showing signs of infection an d possible osteomyelitis. We will recommend to apply Betadine to the wound. Continue vancomycin and cefepime. Keep leg elevated when possible. Continue good nutrition. Consider long-term acute care facility for further followup and monitoring infection. Thank you for consult. MAGDA/TUTU Voice ID: [id number] Report ID: [id number]
[2019-06-10] MEDS: RIVAROXABAN 20 MG TABLET PO SCH (17:10)
[2019-06-10] MEDS: MORPHINE 2 MG/ML SYR IV PRN (17:15)
[2019-06-10] MEDS: METOPROLOL TARTRATE 5 MG/5 ML INJ IV PRN ×3 (19:54→20:38)
[2019-06-10] MEDS ORDERED: DIGOXIN 0.25 MG/ML AMP ONE (20:54)
[2019-06-10] MEDS ORDERED: DIGOXIN 0.25 MG/ML AMP IV ONE (20:55)
[2019-06-10] MEDS ORDERED: AMIODARONE HCL 75 MG in D5W 100 ML IV STA (21:23)
[2019-06-10] MEDS ORDERED: AMIODARONE HCL 150 MG/3 ML INJ IV ONE (21:56)
[2019-06-10] MEDS ORDERED: AMIODARONE IN DEXTROSE,ISO-OSM 360 MG/200 ML BAG IV ONE (21:57)
[2019-06-10] MEDS ORDERED: D5W 100 ML IV ONE (21:57)
[2019-06-10] MEDS ORDERED: AMIODARONE HCL 450 MG in D5W 241 ML IV SCH (22:00)
[2019-06-11] MEDS ORDERED: ALBUMIN HUMAN 25% 100 ML IV ONE (01:23)
--- NOTE | 2019-06-11 01:31 | P.PN ---
Subjective Date of Service: 06/10/19 Patient was scheduled to go home however patient is in atrial fibrillation with rapid ventricular response. Patient has been given IV Lopressor with very little success. Spoke with Cardiology and will give IV digoxin. If patient's heart rate does not improve in 30 min then we will go ahead and proceed with amiodarone drip. We will get echocardiogram reviewed. We will Consult Cardiology. We continued to monitor electrolytes. Review of Systems 10-point ROS is otherwise unremarkable Physical Examination - Vital Signs Temperature: 97.8 F Blood Pressure: 87/67 Pulse: 94 Respirations: 28 Pulse Ox (%): 100 - Physical Exam General: Alert, Other (Patient is tachypneic and diaphoretic) Respiratory: Diminished, Crackles/rales Cardiovascular: Irregular heart rate/rhythm, Systolic murmur Gastrointestinal: Normal bowel sounds, Soft and benign, Non-distended Musculoskeletal: No clubbing, No swelling, No contractures - Studies Microbiology Data (last 24 hrs): 06/05/19 11:28 Blood - Blood Aerobic Blood Culture - Final No growth in 5 days. 06/05/19 11:28 Blood - Blood Anaerobic Blood Culture - Final No growth in 5 days. 06/05/19 11:20 Blood - Blood Aerobic Blood Culture - Final No growth in 5 days. 06/05/19 11:20 Blood - Blood Anaerobic Blood Culture - Final No growth in 5 days. Medications List Reviewed: Yes Assessment & Plan - Problems (Diagnosis) (1) Atrial fibrillation with rapid ventricular response Current Visit: Yes Status: Acute (2) Pulmonary edema Current Visit: Yes Status: Acute (3) Hypoalbuminemia Current Visit: Yes Status: Acute (4) Type 2 diabetes mellitus with diabetic peripheral angiopathy with gangrene Current Visit: Yes Status: Acute - Plan Plan: 1. Patient got Lopressor and digoxin but patient's heart rate is still greater than 140s. Blood pressure is labile. We will start amiodarone drip. Patient also with severe hypoalbuminemia. We will replace . Discharge Plan: Home Plan to discharge in: Greater than 2 days - Advance Directives Does patient have a Living Will: Yes Does patient have a Durable POA for Healthcare: Yes - Code Status/Comfort Care Code Status Assessed: Yes Code Status: Full Code Physician Review: Patient Assessed, Agree with Above Assessment and Plan Critical Care: Yes Time Spent Managing PTS Care (In Minutes): 45
[2019-06-11] MEDS: VANCOMYCIN 2 GM in NA CHLORIDE 0.9% 500 ML IVPB SCH (05:28)
[2019-06-11] MEDS ORDERED: D5W 250 ML IV ONE (07:00)
[2019-06-11] MEDS ORDERED: AMIODARONE HCL 150 MG/3 ML INJ IV ONE (07:00)
[2019-06-11] MEDS: INSULIN -REGULAR HUMAN 50 UNIT/0.5 ML ML SQ SCH ×4 (07:30→20:57)
[2019-06-11] MEDS: METOPROLOL TAR 50 MG TAB PO SCH ×2 (08:03→20:55)
--- NOTE | 2019-06-11 08:29 | RAD REPORT ---
EXAM DESCRIPTION: RAD - Chest Single View - 06/10/2019 9:09 pm CLINICAL HISTORY: Shortness of breath. COMPARISON: 06/06/2019 FINDINGS: The heart size is enlarged with pulmonary vascular congestion. There are small pleural eff usions with adjacent airspace disease. No pneumothorax. The right upper extremity PICC has been sligh tly retracted with the tip now overlying the SVC. IMPRESSION: 1. Interval development of pulmonary edema with small pleural effusions. 2. Right upper extremity PICC has been slightly retracted with the tip now overlying the SVC. Electronically signed by: Carter Street MD 06/10/2019 9:20 PM CDT Due to temporary technical issues with the PACS/Fluency reporting system, reports are being signed by the in house radiologist as a courtesy to ensure prompt reporting. The interpreting radiologist is f ully responsible for the content of the report.
[2019-06-11] MEDS ORDERED: AMIODARONE HCL 200 MG TAB PO SCH (09:00)
[2019-06-11] MEDS: CEFEPIME/SWI 2gm 2 GM/20 ML SYR IVP SCH ×2 (09:31→20:57)
--- NOTE | 2019-06-11 10:08 | P.PN ---
Subjective Date of Service: 06/11/19 Patient is clinically doing much better. Continues amiodarone drip. Blood pressure is on the low side and will monitor closely. Patient with significant hypoalbuminemia as well. Review of Systems 10-point ROS is otherwise unremarkable Physical Examination - Vital Signs Temperature: 97.7 F Blood Pressure: 95/62 Pulse: 89 Respirations: 27 Pulse Ox (%): 100 - Physical Exam General: Alert, In no apparent distress, Oriented x3 Respiratory: Clear to auscultation bilaterally, Normal air movement Cardiovascular: Irregular heart rate/rhythm, Systolic murmur Gastrointestinal: Normal bowel sounds, Soft and benign, Non-distended, No tenderness Musculoskeletal: No clubbing, No swelling, No erythema Neurological: Sensation intact, Cranial nerves 3-12 intact - Studies Microbiology Data (last 24 hrs): 06/05/19 11:28 Blood - Blood Aerobic Blood Culture - Final No growth in 5 days. 06/05/19 11:28 Blood - Blood Anaerobic Blood Culture - Final No growth in 5 days. 06/05/19 11:20 Blood - Blood Aerobic Blood Culture - Final No growth in 5 days. 06/05/19 11:20 Blood - Blood Anaerobic Blood Culture - Final No growth in 5 days. Medications List Reviewed: Yes Assessment & Plan - Problems (Diagnosis) (1) Atrial fibrillation with rapid ventricular response Current Visit: Yes Status: Acute (2) Pulmonary edema Current Visit: Yes Status: Acute (3) Hypoalbuminemia Current Visit: Yes Status: Acute (4) Type 2 diabetes mellitus with diabetic peripheral angiopathy with gangrene Current Visit: Yes Status: Acute - Plan Plan: 1. Continue amiodarone drip 2. Albumin 25 g IV x1 3. Monitor strict I's & O's 4. Continue antibiotic regimen 5. Strict blood sugar results 6. Anti coagulation 7. GI and DVT prophylaxis Discharge Plan: Home Plan to discharge in: Greater than 2 days - Advance Directives Does patient have a Living Will: Yes Does patient have a Durable POA for Healthcare: Yes - Code Status/Comfort Care Code Status: Full Code Physician Review: Patient Assessed, Agree with Above Assessment and Plan Critical Care: Yes Time Spent Managing PTS Care (In Minutes): 35
--- NOTE | 2019-06-11 10:23 | PN ---
Date of Progress Note: 06/11/2019 Mr. Kelly had been followed by me over the last few days because of history of CAD, hypertension, dyslipidemia. He is status post metatarsal amputation by Dr. Vazquez. Was being observed 1 more day i n the hospital before discharge yesterday. However, he ended up going into rapid atrial fibrillation with hypotension, unresponsive to beta-blockers and unresponsive digoxin. He was transferred to the ICU when he was given a bolus of amiodarone and he is now on IV amiodarone. This morning, his heart rate is 70 and he is asymptomatic but remains on IV amiodarone. In the past, he used to be on sotal ol and was switched from sotalol to metoprolol. He continues to take Xarelto. For now, I would give him p.o. amiodarone 400 mg. I would discontinue the IV amiodarone in 2 hours after that. Keep him on 400 mg p.o. b.i.d. of amiodarone, put him on metoprolol 50 b.i.d. Continue the Xarelto. He can g o to Telemetry. If he remains in atrial fibrillation tomorrow, we will consider cardioversion. JESU/TUTU Voice ID: [id number] Report ID: [id number]
[2019-06-11 11:08] LABS: Absolute Lymphocytes (CBC) 2.8 K/uL (0.7-4.9); Basophils % 0.4 % (0-1.3); Hematocrit 36.4 % (39.6-49.0); Lymphocytes % 12.9 % (15.3-44.8); MPV 8.9 fL (7.6-11.3); RBC Red Blood Cell Count 4.29 M/uL (4.33-5.43)
[2019-06-11 11:13] LABS: Urine Appearance TURBID; Urine Blood 2+ (NEG); Urine Color DK YELLOW; Urine Glucose 1+ (NEG); Urine Protein 2+ (NEG); Urine Specific Gravity >=1.030 (1.005-1.030); Urine Urobilinogen 0.2 mg/dL (0.2-1.0); Urine pH 5.5 (5.0-7.0)
[2019-06-11 11:18] LABS: Urine Protein/Creatinine Ratio 2.2 ratio (<0.15)
[2019-06-11 11:27] LABS: Blood Morphology Comment NOT SEEN (NOT SEEN); Platelet Estimate INCR; Platelets, Giant FEW
[2019-06-11 11:31] LABS: Urine Bilirubin NEGATIVE (NEG)
[2019-06-11 11:36] LABS: Albumin 2.2 g/dL (3.4-5.0); Bilirubin Total 1.2 mg/dL (0.2-1.0); Potassium 4.9 mmol/L (3.5-5.1); Protein, Total 7.4 g/dL (6.4-8.2)
[2019-06-11 11:59] LABS: Urine Amorphous Sediment 2+ /HPF (NONE SEEN); Urine Bacteria 20-50 /HPF (NONE SEEN); Urine Culture Reflex Order REFLEXED
--- NOTE | 2019-06-11 13:29 | P.PN ---
Subjective Date of Service: 06/11/19 Chief Complaint: Foot wound patient is s/p 5 day right transmetatarsal amputation Review of Systems 10-point ROS is otherwise unremarkable Physical Examination - Vital Signs Temperature: 97.7 F Blood Pressure: 95/62 Pulse: 89 Respirations: 27 Pulse Ox (%): 100 - Physical Exam General: Alert, In no apparent distress, Oriented x3 Cardiovascular: Abnormal pulses Capillary refill: None Integumentary: Other (right transmetatarsal amputation site is demonstrating signs of ischemia and infection with skin being cold to the touch, dehiscence of the wound and purulence noted at dehiscence site.) Neurological: Abnormal sensation - Studies Microbiology Data (last 24 hrs): 06/05/19 11:28 Blood - Blood Aerobic Blood Culture - Final No growth in 5 days. 06/05/19 11:28 Blood - Blood Anaerobic Blood Culture - Final No growth in 5 days. 06/05/19 11:20 Blood - Blood Aerobic Blood Culture - Final No growth in 5 days. 06/05/19 11:20 Blood - Blood Anaerobic Blood Culture - Final No growth in 5 days. Medications List Reviewed: Yes Assessment And Plan - Current Problems (Diagnosis) (1) Type 2 diabetes mellitus with diabetic peripheral angiopathy with gangrene Current Visit: Yes Status: Acute (2) Abscess of right foot Current Visit: Yes Status: Acute - Plan Patient to be nonweightbearing right foot in posterior splint. Patient to keep dressing clean, dry and intact. Continue iv antibiotics Patient is demonstrating signs of right flap failure and ischemia. Please consult general surgery for possible right BKA Physician Review: Patient Assessed, Agree with Above Assessment and Plan Physician Review Additional Text: A/P AWAITING HOME INFUSION SET UP Sepsis. Resolved. WBC normalized. Cont broad spectrum IV abx. F/up on cultures - no growth to date. source of infection is osteomyelitis 5th toe and gangrene of the right 1st toe. Gangrenous 1st right toe continue IV antibiotics. Patient s/p trans met amputation by Dr. Vazquez. Wound healing well Osteomyelitis 5th right toe. continue with IV antibiotics patient will need long-term IV antibiotics. infectious disease consulted. PICC line in place Atrial fibrillation with rapid ventricular rate permanent. Now with controlled rate. continue Xarelto continue rate control w BB. Cardiology on board. Coronary artery disease status post stent. Resume home medications. Outpatient stress test Peripheral arterial disease. now with gangrene of the 1st toe. Will need outpatient workup with cardiology Essential Hypertension. Continue home medications Obesity. BMI 34.9 counseled New onset diabetes mellitus type 2 with hyperglycemia. Continue sliding scale insulin. hemoglobin A1c 7%. Counseled.
[2019-06-11] MEDS ORDERED: FUROSEMIDE 40 MG/4 ML VIAL IV ONE (14:15)
[2019-06-11] MEDS: SODIUM HYPOCHLORITE 0.5% 473 ML TOP SCH (14:19)
[2019-06-11 14:26] LABS: Protime INR 8.76
[2019-06-11] MEDS ORDERED: VITAMIN K (ADULT) 10 MG/ML SQ SCH (15:00)
--- NOTE | 2019-06-11 15:18 | CON ---
Date of Consultation: 06/11/2019 Reason For Consult: Acute renal failure. History Of Present Illness: Mr. Kelly is a 59-year-old male with past medical history significant for history of atrial fibrillation, on Xarelto, coronary artery disease, and peripheral vascular dis ease. He presented 1 week ago to the hospital complaining of worsening ulceration of his right first and fifth toes. His first toe became gangrenous and he presented to his delivery mgr, who directed hi m to the emergency room. He underwent a transmetatarsal amputation about 1 week ago and he was doing okay. He was getting antibiotics and also local wound care. However, he was kept for further monit oring and last night, he had an episode of rapid atrial fibrillation into the 200s and was brought to the ICU, was not able to be controlled by beta-blockers. He needed amiodarone for rate control and he was started on an amiodarone drip. However, this morning, he was noted to have worsening renal fa ilure with oliguria and hence Nephrology is being consulted. The patient states that he is having some mild shortness of breath and chest congestion at this time. Denies any pain in his right leg; however, his leukocytosis is worsening and he is planned for BKA tomorrow on the right side. Past Medical History: Significant for history of atrial fibrillation, coronary artery disease, perip heral vascular disease, history of cardiac stents, and left knee surgery. Social History: He is a former smoker. No history of alcohol or drug use. Review of Systems: Positive for mild shortness of breath. Denies any chest pain. Denies any abdominal pain. Denies an y nausea, vomiting, or diarrhea. All other review of systems are negative. Physical Examination: Vital Signs: At this time are showing temperature of 97.7, pulse rate of 89, respiratory rate of 27, and blood pressure of 95/62. He is saturating 100% on room air. General: He appears in no acute distress. Mild JVD was noted. HEENT: Shows atraumatic head. Lungs: Auscultation of the lungs revealed bibasilar crackles. Abdomen: Soft and nontender. Heart: Auscultation of the heart revealed tachycardia with a regular rate and rhythm. Extremities: With evidence of trace amount of edema. His right foot was noted to be gangrenous. Laboratory Data: At this time are showing WBC count of 21,000, hemoglobin of 11.6, hematocrit 36.4, and platelet count of 462. BMP results are; repeat labs are still pending, but lactic acid was eleva gerardo to 5.2. Sodium of 135, potassium of 4.9, chloride of 99, BUN of 20, and creatinine of 1.61, whic h is worsening from previous creatinine, which was normal. His LFTs are significantly elevated with AST of 4867 and ALT of 1620. His procalcitonin was also elevated to 2.8. Chest x-ray was done yeste rday, but none this morning. He did have some pulmonary edema with small pleural effusions and PICC line was noted in the right upper extremity from yesterday. Current Medications: Include, amiodarone, metoprolol 5 mg every 6 hours p.r.n., Xarelto, and vancomy maribell. Impression: 1.Acute renal failure, likely secondary to acute tubular necrosis from hemodynamic instability from recent atrial fibrillation episode. He also has shock liver which is consistent with hypoperfusion. At this time, however, we are unable to give any intravenous fluids because of pulmonary edema. We will repeat a chest x-ray again today and we will give him a dosage of Lasix to see if his urine outp ut would improve. We will also request a renal ultrasound for further evaluation. 2.Gangrene of the right foot. The patient is planned for a below-knee amputation. We will need to get his volume status optimized in the meanwhile. 3.Rapid atrial fibrillation. The patient is being followed by Cardiology and plan for possible card ioversion if he remains in persistent rapid atrial fibrillation by tomorrow. He is currently on meto prolol and amiodarone for rate control. 4.History of congestive heart failure. The patient will need further diuresis based on his volume s tatus. 5.Elevated liver function tests, likely secondary to shock liver versus hepatic congestion. We will request abdominal ultrasound to look for his liver as well as his kidney. Plan: Overall, the patient is critically ill at this time. I would give him a dosage of Lasix and r epeat a chest x-ray. We will request a renal and liver ultrasound for further evaluation. Vancomyci n is being given and I will request Pharmacy consult to monitor vancomycin levels very, very closely, especially given acute onset of renal failure as well as liver insufficiency. The patient is gettin g plan for a BKA; however, his volume status needs to be optimized prior to surgery. Thank you very much for this consultation. Please do not hesitate to call us with any questions or c oncerns. VV/MODL Voice ID: [id number] Report ID: [id number]
--- NOTE | 2019-06-11 15:47 | RAD REPORT ---
EXAM DESCRIPTION: US - Abdomen Exam Complete - 06/11/2019 3:25 pm CLINICAL HISTORY: elevated lfts and renal failure COMPARISON: ABDOMINAL EXAM COMPLETE dated 03/22/2009; Chest Single View dated 06/10/2019 FINDINGS: Gallbladder is contracted. This accentuates wall thickness limiting ability to accurately assess for any true wall thickening or edema. No gallstones are seen. No sludge or pericholecystic fl uid. Common bile duct is normal with no common duct stone identified. The liver and spleen show no suspicious findings. Liver is 16 cm. Spleen is 13 cm. Doppler evaluation shows no portal vein abnormality. The pancreas is too obscured by bowel for assessment. No hydronephrosis or suspicious mass in either kidney. Aorta and IVC show no significant finding. No bulky lymphadenopathy. Fluid adjacent to the liver is believed to be part of pleural fluid rather than ascites. IMPRESSION: Limited gallbladder assessment. Gallbladder is contracted which creates gallbladder wall thickening. No stones or sludge identified. The liver is size and shows no focal lesion or abnormal hepatic parenchymal pattern. Pancreas is too obscured by bowel gas for assessment.
--- NOTE | 2019-06-11 15:52 | RAD REPORT ---
EXAM DESCRIPTION: US - Lower Extremity Artery Uni Ltd - 06/11/2019 3:31 pm CLINICAL HISTORY: N Leg pain, recent midfoot amputation due to infection COMPARISON: Foot Right 2 View dated 06/06/2019; Foot Right 3 View dated 06/05/2019 TECHNIQUE: Doppler evaluation of the right arterial tree performed. Waveforms and velocity values we re obtained along with visual inspection. FINDINGS: Monophasic waveform pattern seen in the right common femoral, femoral and popliteal arteri es. This is often an indication of significant aortoiliac disease. Flow within the right dorsalis ped is and posterior tibial arteries could not be confirmed. Right common femoral artery showed a 62 cm/seconds peak velocity. Superficial femoral artery was 27 c m/second in the popliteal artery 15 cm/second. No focal mass in the soft tissues. IMPRESSION: Significant right lower extremity peripheral arterial disease seen with dampened, monoph asic waveform pattern from groin to knee. This often indicates significant flow restricting disease i n the iliac vasculature or distal aorta. No blood flow could be confirmed in the right dorsalis pedis or popliteal artery at the ankle.
--- NOTE | 2019-06-11 15:53 | EKG ---
Test Date: 2019-06-10 Test Time: 20:43:43 Managed Care Liaison: RT [place] MEASUREMENT RESULTS: Intervals: Rate: 163 MO: QRSD: 62 QT: 278 QTc: 457 [place]: P: MO: QRS: -3 T: -34 INTERPRETIVE STATEMENTS: Atrial fibrillation with rapid ventricular response Low voltage QRS Septal infarct, age undetermined Abnormal ECG Compared to ECG 06/05/2019 11:21:11 Low QRS voltage now present Myocardial infarct finding now present Electronically Signed On 06-11-19 15:50:19 CDT by Alvarado Leslie
--- NOTE | 2019-06-11 16:18 | PN ---
Subjective: Patient lying in bed, went to ICU yesterday because patient heart rate went to 170 and h e went into sepsis. Patient denies any headache, nausea, vomiting, chest pain, abdominal pain, const ipation, or diarrhea. Objective: Vital Signs: Temperature 97, pulse 89, respirations 27, blood pressure 90/62. Lungs: Basal crackles. Heart: S1, S2. Regular. Abdomen: Soft, nontender. Bowel sounds present. Extremities: Right foot shows decreased circulation with extreme cold to touch all the way up to abo ve ankle area, also purplish discoloration with some dehiscence of the wound site also noted at the T MA area. Continue antibiotic and supportive care. We will recommend to change patient to meropenem. Assessment And Plan: Right foot status post transmetatarsal amputation. Patient getting septic and wound getting worsened. We will recommend to have a below-knee amputation done. The patient agrees to the plan. Hospitalist was informed regarding the patient's condition who will contact the surgeon s for further management of this condition. We will follow the patient closely. We will recommend t o change antibiotic to meropenem and continue vancomycin. NF/MODL Voice ID: [id number] Report ID: [id number]
--- NOTE | 2019-06-11 19:54 | CON ---
Date of Consultation: 06/11/2019 Brief History Of Present Illness: Patient is a 59-year-old male with past medical history of atrial fibrillation, on Xarelto and coronary disease, status post peripheral stent placement, who was in the usual state of health until approximately 1 month prior to admission. He had been having worsening ulceration of his right foot on his first and fifth toes. His first toe became gangrenous and presented to the asbestos shingle roofer, Dr. Nathan earlier in the morning of his presentation on 06/05/2019 . He was seen by Dr. Nathan and sent to the ER for evaluation for osteomyelitis, needing likely an amputation/TMA. The patient was seen in the ER, ultimately evaluated by Dr. Vazquez, who performed a T MA on the patient. However, the wound continues to worsen and he continues to show signs of sepsis. He has had atrial fibrillation for which he is in the ICU receiving therapy, on anticoagulation as w ell as cardiac medications for rate control. He has minimal pain at that point, and I had seen the p atient in the ER, but the patient refused the consult as he said he would not consider a BKA at that point. His foot x-ray at the time of admission showed a gangrenous area of the first toe and osteomy elitis of the fifth. Past Medical History: Significant for atrial fibrillation, coronary artery disease, peripheral arter y disease. Past Surgical History: Cardiac stent, left knee surgery as well as the transmetatarsal amputation on the right foot as well, as described above. Social History: He is a former smoker. Denies alcohol or recreational drug use. Home Medications: Hydrocodone bitartrate, metoprolol, Xarelto 20 mg p.o. daily. Review of Systems: 10-point review of systems other than HPI, denies. Physical Examination: Vital Signs: At the time of my examination, his vital signs were a temperature 97.7, heart rate was 89, respiratory rate 27, blood pressure was 95/62, SpO2 100% on room air. General: He is awake, alert, and oriented. Psychiatric: He is appropriate, conversive. HEENT: Normocephalic. His sclerae are anicteric. His mucous membranes are moist. Oropharynx clear . Neck: Supple. No JVD. Chest: Normal expansion and excursion. Cardiovascular: Irregular rhythm, currently in atrial fibrillation. Rate is regular rate though. Extremities: Focused examination of the lower extremities, his right lower extremity has cellulitis and infectious changes with some gangrenous changes to the surgical site with wound dehiscence consis tent with ongoing infection. Laboratory Data: He had a laboratory exam, which revealed a white blood cell count of 21.4, up from 9.6 yesterday. His hemoglobin is 11.6, hematocrit 36.4, platelet count is 462, neutrophils are 82%. His coags showed a PT of 99.1, INR 8.76, his PTT is 39.8, D-dimer 2869. His chemistry showed a lact ic acid of 5.2. Sodium is 135, potassium 4.9, chloride 99, carbon dioxide 20, BUN 20, creatinine is 1.61, glucose is 180, calcium 8.3, total bilirubin 1.2, AST is 4867, ALT 1620, alkaline phosphatase i s 89. His procalcitonin is 2.89. His UA showed 1+ glucose, ketones, blood, 5-10 red blood cells and 5-10 squamous cells, 2+ amorphous sediments, bacteria 20-50. The patient was eating during my evaluation with him at approximately 2 p.m. on today's date, 020. His hospital medications included amiodarone, cefepime, digoxin, Lasix, glucagon, [place], Lopres sor, morphine, Dakin solution, Zofran, vitamin K being given now and vancomycin. Imaging was performed as well. Chest x-ray performed on 06/09, officially read as interval developme nt of pulmonary edema, small pleural effusions, right upper extremity PICC line has been slightly yes terday retracted with the tip now overlying the SVC and he had a foot x-ray on admission on 0 officially read as 2 fluoroscopic spot images with metatarsal amputation per Dr. Vazquez, that was fr om intraoperative procedure. His surgical specimen was submitted on with severe gangrenous changes a nd acute inflammation involving the first digit ulceration with acute inflammation and necrosis invol ving the fourth and fifth digits, acute osteomyelitis of the fifth digit. Skin and resection margin partially viable with some necrosis, acute inflammation, and hemorrhage. Assessment And Plan: This is a 59-year-old male who comes in with likely sepsis from a continued inf ected right lower extremity. 1.IV fluid. 2.Antibiotic to continue. 3.Correction of coagulopathy. 4.N.p.o. status. 5.I have explained the risks, benefits, and alternatives of [id number] amputation including but not limited to bleeding, infection, damage to surrounding tissues, need for further operation and pro cedures, the patient agrees to proceed as indicated. We will proceed with a [id number] amputatio n tomorrow at our earliest convenience. The patient agrees to proceed as indicated. Continue medica l management per Dr. Parker and primary team and consultants. Thank you for this interesting consult. LETICIA/TUTU Voice ID: [id number] Report ID: [id number]
[2019-06-11 20:05] LABS: Absolute Lymphocytes (CBC) 2.1 K/uL (0.7-4.9); Basophils % 0.5 % (0-1.3); Hematocrit 32.8 % (39.6-49.0); Lymphocytes % 13.6 % (15.3-44.8); RBC Red Blood Cell Count 3.97 M/uL (4.33-5.43)
[2019-06-11 20:36] LABS: Albumin 2.1 g/dL (3.4-5.0); Bilirubin Total 0.9 mg/dL (0.2-1.0); Potassium 4.1 mmol/L (3.5-5.1); Protein, Total 6.8 g/dL (6.4-8.2)
[2019-06-11] MEDS: MORPHINE 2 MG/ML SYR IV PRN (20:59)
[2019-06-12 01:07] VITALS: O2SAT 97
[2019-06-12 04:24] VITALS: TEMP 97.1
[2019-06-12] MEDS ORDERED: VANCOMYCIN 2 GM in NA CHLORIDE 0.9% 500 ML IVPB SCH (06:00)
[2019-06-12 06:37] VITALS: BMI 34.9
[2019-06-12 07:01] LABS: Protime INR 5.79
[2019-06-12] MEDS: INSULIN -REGULAR HUMAN 50 UNIT/0.5 ML ML SQ SCH ×2 (07:30→11:30)
[2019-06-12] MEDS: METOPROLOL TAR 50 MG TAB PO SCH (08:21)
--- NOTE | 2019-06-12 08:32 | RAD REPORT ---
EXAM DESCRIPTION: Bren Single View06/12/2019 8:20 am CLINICAL HISTORY: Chest pain COMPARISON: June 10, 2019 FINDINGS: No significant change in mild to moderate bilateral pulmonary opacities. The heart remains enlarged. Small pleural effusions suspected. PICC line in place IMPRESSION: No significant change [id number] pulmonary
[2019-06-12] MEDS: SODIUM HYPOCHLORITE 0.5% 473 ML TOP SCH (09:00)
[2019-06-12] MEDS: CEFEPIME/SWI 2gm 2 GM/20 ML SYR IVP SCH (09:20)
[2019-06-12] MEDS ORDERED: NA CHLORIDE 0.9% 250 ML ONE (10:19)
[2019-06-12 12:17] LABS: Protime INR 3.87
[2019-06-12 12:43] LABS: Albumin 2.2 g/dL (3.4-5.0); Bilirubin Total 0.8 mg/dL (0.2-1.0); Magnesium 2.4 mg/dL (1.8-2.4); Phosphorus 4.1 mg/dL (2.5-4.9); Potassium 3.7 mmol/L (3.5-5.1); Protein, Total 6.9 g/dL (6.4-8.2); Troponin I 0.1 ng/mL (0.0-0.045)
[2019-06-12 13:27] VITALS: BP 121/92
--- NOTE | 2019-06-13 07:46 | ECHO ---
HEIGHT: 5 ft 11 in WEIGHT: 251 lb 0 oz DATE OF STUDY: 06/12/[address]: James Parker MD 2-DIMENSIONAL: YES M.MODE: YES DOPPLER: YES COLOR FLOW: YES TDS: PORTABLE: DEFINITY: BUBBLE STUDY: DIAGNOSIS: DYSPNEA CARDIAC HISTORY: CATHERIZATION: YES SURGERY: NO PROSTHETIC VALVE: NO PACEMAKER: NO MEASUREMENTS (cm) DIASTOLIC (NORMALS) SYSTOLIC (NORMALS) IVSd 1.1 (0.6-1.2) LA Diam (1.9-4.0) LVEF 57% LVIDd 4.7 (3.5-5.7) LVIDs 3.3 (2.0-3.5) %FS 30% LVPWd 1.2 (0.6-1.2) Ao Diam 3.3 (2.0-3.7) 2 DIMENSIONAL ASSESSMENT: RIGHT ATRIUM: NORMAL LEFT ATRIUM: DILATED RIGHT VENTRICLE: NORMAL LEFT VENTRICLE: NORMAL SIZE TRICUSPID VALVE: NORMAL MITRAL VALVE: MITRAL ANNULAR CALCIFICATION PULMONIC VALVE: NORMAL AORTIC VALVE: NORMAL PERICARDIAL EFFUSION: NONE AORTIC ROOT: NORMAL LEFT VENTRICULAR WALL MOTION: NORMAL SIZE - DECREASED LEFT VENTRICULAR COMPLIANCE DOPPLER/COLOR FLOW: MILD MITRAL AND TRICUSPID REGURGITATION. COMMENTS: MILD MITRAL AND TRICUSPID REGURGITATION. LEFT VENTRICULAR SIZE NORMAL - EJECTION FRACTION 57%. DECREASED LEFT VENTRICULAR COMPLIANCE. MITRAL ANNULAR CALCIFICATION. ATRIAL FIBRILLATION NOTED. LEFT ATRIAL ENLARGEMENT. NO THROMBUS. TECHNOLOGIST: NICOLE LOCKE
--- NOTE | 2019-06-13 11:49 | P.DS ---
Discharge Date: 06/12/19 Disposition: TRANSFER TO [facility] Discharge Condition: FAIR Reason for Admission: Foot wound - Problems (1) Atrial fibrillation with rapid ventricular response Status: Acute (2) Pulmonary edema Status: Acute (3) Hypoalbuminemia Status: Acute (4) Type 2 diabetes mellitus with diabetic peripheral angiopathy with gangrene Status: Acute Vital Signs/Physical Exam: Temp Pulse Resp BP Pulse Ox 97.1 F 112 H 20 121/92 H 99 06/12/19 04:00 06/12/19 13:00 06/12/19 13:00 06/12/19 13:00 06/12/19 13:00 Laboratory Data at Discharge: WBC 15.5 K/uL (4.3-10.9) H D 06/11/19 19:53 Hgb 10.7 g/dL (13.6-17.9) L 06/11/19 19:53 Hct 32.8 % (39.6-49.0) L 06/11/19 19:53 Plt Count 338 K/uL (152-406) D 06/11/19 19:53 PT 44.5 SECONDS (9.5-12.5) H 06/12/19 11:58 INR 3.87 06/12/19 11:58 APTT 32.4 SECONDS (24.3-36.9) 06/12/19 11:58 Sodium 135 mmol/L (136-145) L 06/12/19 11:58 Potassium 3.7 mmol/L (3.5-5.1) 06/12/19 11:58 BUN 46 mg/dL (7-18) H 06/12/19 11:58 Creatinine 2.51 mg/dL (0.55-1.3) H 06/12/19 11:58 Glucose 171 mg/dL (74-106) H 06/12/19 11:58 Phosphorus 4.1 mg/dL (2.5-4.9) 06/12/19 11:58 Magnesium 2.4 mg/dL (1.8-2.4) 06/12/19 11:58 Total Bilirubin 0.8 mg/dL (0.2-1.0) 06/12/19 11:58 AST 2034 U/L (15-37) H* D 06/12/19 11:58 ALT 1318 U/L (12-78) H* D 06/12/19 11:58 Alkaline Phosphatase 92 U/L (45-117) 06/12/19 11:58 Troponin I 0.10 ng/mL (0.0-0.045) H 06/12/19 11:58 Amylase 35 U/L (25-115) 06/05/19 11:20 Lipase 92 U/L (73-393) 06/05/19 11:20 Home Medications: HYDROcodone bitartrate [Hydrocodone Bitartrate ER] 30 mg PO BID PRN 06/05/19 Metoprolol Tartrate 150 mg PO BID 06/05/19 Rivaroxaban [Xarelto] 20 mg PO DAILY 06/05/19 CEFEPIME/SWI 2gm [Maxipime 2 gm/20 ml Swi Ivp] 2 gm IV Q12HR #1 syr 06/09/19 Vancomycin/Water For Inj (Peg) [Vancomycin 2 Gram/400 ml Bag] 2 gm IV Q12HR #1 piggyback 06/09/19 New Medications: CEFEPIME/SWI 2gm [Maxipime 2 gm/20 ml Swi Ivp] 2 gm IV Q12HR #1 syr Vancomycin/Water For Inj (Peg) [Vancomycin 2 Gram/400 ml Bag] 2 gm IV Q12HR #1 piggyback Patient Discharge Instructions: Follow up with primary care physician in 1-2 weeks. Follow up with survey superintendent Dr. Vazquez in 1 week for wound check. Return to ER for worsening condition. Wound care instructions per Dr. Vazquez. Patient to have IV antibiotics set up as patient. Will need complete CBC CMP ESR to CRP weekly. PCP to follow up on test results. PICC line care. Dc PICC line once IV antibiotics completed Diet: ADA Activity: Non-weight bearing (Right foot) Followup: Kobi Vazquez JR, DPM [ASSOCIATE-ACTIVE - CAN ADMIT] -
== END 2019-06-12 13:08 | disposition short-term general hospital (02) | DRG 853 ==
LOC: ER 11:14 → ERHOLD 12:39 → 2ND 13:43 → 3RD-ICU 06-10 21:25
PROVIDERS: ADMIT Family Medicine; ATTEND Family Medicine
PROC: 0Y6M0ZC Detachment at Right Foot, Partial 3rd Ray, Open Approach (ICD-10-PCS; 2019-06-06)
PROC: 0Y6M0ZD Detachment at Right Foot, Partial 4th Ray, Open Approach (ICD-10-PCS; 2019-06-06)
PROC: 0Y6M0ZF Detachment at Right Foot, Partial 5th Ray, Open Approach (ICD-10-PCS; 2019-06-06)
PROC: 0QDN0ZZ Extraction of Right Metatarsal, Open Approach (ICD-10-PCS; 2019-06-06)
PROC: 0L8V0ZZ Division of Right Foot Tendon, Open Approach (ICD-10-PCS; 2019-06-06)
PROC: 02HV33Z Insertion of Infusion Device into Superior Vena Cava, Percutaneous Approach (ICD-10-PCS; 2019-06-06)
PROC: 0Y6M0ZB Detachment at Right Foot, Partial 2nd Ray, Open Approach (ICD-10-PCS; principal; 2019-06-06 11:00)
PROC: 30233K1 Transfusion of Nonautologous Frozen Plasma into Peripheral Vein, Percutaneous Approach (ICD-10-PCS; 2019-06-12)
DX: A41.9 Sepsis, unspecified organism (principal); K72.00 Acute and subacute hepatic failure without coma; J81.0 Acute pulmonary edema; E11.52 Type 2 diabetes mellitus with diabetic peripheral angiopathy with gangrene; I96 Gangrene, not elsewhere classified; M86.9 Osteomyelitis, unspecified; I48.20 Chronic atrial fibrillation, unspecified; E87.1 Hypo-osmolality and hyponatremia; L02.611 Cutaneous abscess of right foot; N17.9 Acute kidney failure, unspecified; E88.09 Other disorders of plasma-protein metabolism, not elsewhere classified; Z79.01 Long term (current) use of anticoagulants; Z79.891 Long term (current) use of opiate analgesic; Z79.899 Other long term (current) drug therapy; Z95.820 Peripheral vascular angioplasty status with implants and grafts; I25.10 Atherosclerotic heart disease of native coronary artery without angina pectoris; Z95.5 Presence of coronary angioplasty implant and graft; Z87.891 Personal history of nicotine dependence; I10 Essential (primary) hypertension; E66.9 Obesity, unspecified; Z68.34 Body mass index [BMI] 34.0-34.9, adult; R79.82 Elevated C-reactive protein (CRP); E11.65 Type 2 diabetes mellitus with hyperglycemia; E11.69 Type 2 diabetes mellitus with other specified complication; E11.621 Type 2 diabetes mellitus with foot ulcer; L97.519 Non-pressure chronic ulcer of other part of right foot with unspecified severity
CPT/HCPCS: 36415; 36430; 36569; 71045; 71046; 76700; 80048; 80053; 80076; 80202; 81001; 82150; 82550; 82553; 82570; 82947; 83036; 83605; 83690; 83735; 83970; 84100; 84145; 84156; 84484; 85025; 85379; 85610; 85730; 86140; 86850; 86900; 86901; 87040; 87070; 87075; 87086; 87088; 87205; 88304; 88305; 88311; 93005; 93306; 93926; 94760; 96365; 96368; 97110; 97116; 97161; 97530; 99284; J0282; J0692; J1160; J1170; J1940; J2270; J2370; J2543; J2704; J2997; J3010; J3430; J7030; J7040; J7060; P9047; P9059